=== PATIENT | male | born 1965 | race American Indian/Alaskan Native ===

== ENCOUNTER 2019-09-12 16:23 | Emergency (ER) | payer SELFPAY ==
--- NOTE | 2019-09-12 16:51 | Emergency Department Report ---
Blank Doc - Documentation Documentation: 53-year-old male that presents with right wrist drop with history of wrist drop. Stated symptoms started in the middle of the night after sleeping. Exam: no weakness to one sided. no facial drooping. no headache. normal gait. This initial assessment/diagnostic orders/clinical plan/treatment(s) is/are subject to change based on patient's health status, clinical progression and re- assessment by fellow clinical providers in the ED. Further treatment and workup at subsequent clinical providers discretion. Patient/guardians urged not to elope from the ED as their condition may be serious if not clinically assessed and managed. Initial orders include: 1- Patient sent to [facility] for further evaluation and treatment 2- labs
[2019-09-12 19:42] LABS: Basophils # (Auto) 0.2 K/mm3 (0.0-0.1); Basophils % (Auto) 1.9 % (0.0-1.8); Eosinophils # (Auto) 0.3 K/mm3 (0.0-0.4); Eosinophils % (Auto) 3.5 % (0.0-4.3); Hematocrit 51.3 % (35.5-45.6); Hemoglobin 16.9 gm/dl (11.8-15.2); Lymphocytes # (Auto) 1.3 K/mm3 (1.2-5.4); Lymphocytes % (Auto) 16.4 % (13.4-35.0); Mean Corpuscular HGB Conc 33 % (32-34); Mean Corpuscular Volume 95 fl (84-94); Monocytes % (Auto) 12.6 % (0.0-7.3); Platelet Count 204 K/mm3 (140-440); Red Blood Count 5.38 M/mm3 (3.65-5.03); Red Cell Distribution Width 15.6 % (13.2-15.2)
[2019-09-12 20:37] LABS: BUN/Creatinine Ratio 11; Blood Urea Nitrogen 11 mg/dL (9-20); Calcium 9.6 mg/dL (8.4-10.2); Hemolysis Index 17
--- NOTE | 2019-09-12 21:59 | Emergency Department Report ---
HPI - General Chief Complaint: Neuro Symptoms/Deficit Time Seen by Provider: 09/12/19 16:47 - HPI HPI: Room 1 The patient is a 53-year-old male presenting with a chief complaint of right wrist weakness. The patient states he awakened this morning at 04:00 and knows it difficult to control in his right hand. The patient states he had difficulty extending his right wrist and timing issues with his right hand prompted him to come to the hospital. 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 The patient states symptoms improved until this morning. Patient states it feels exact same way as it did 5 years ago patient denies paresthesias elsewhere. Patient denies dysarthria or dysphagia. Patient denies weakness \Location: [See above] Duration: [See above] Quality: [See above] Severity: [See above] Timing: [See above] Context: [See above] Modifying factors: [See above] Associated signs and symptoms: [see above] ED Past Medical Hx - Past Medical History Hx Hypertension: Yes Hx Diabetes: Yes - Surgical History Past Surgical History?: No - Family History Family history: no significant - Social History Smoking Status: Current Every Day Smoker (2/3 pack per day) Substance Use Type: Cocaine, Marijuana ED Review of Systems ROS: Stated complaint: RT ARM TINGLE/POSS STROKE Other details as noted in HPI Constitutional: no symptoms reported Eyes: denies: eye pain ENT: denies: throat pain Respiratory: no symptoms reported Cardiovascular: denies: chest pain Endocrine: no symptoms reported Gastrointestinal: denies: abdominal pain Genitourinary: denies: dysuria Musculoskeletal: denies: back pain Neurological: weakness, paresthesias Psychiatric: denies: depression Physical Exam - Physical Exam Vital Signs: Vital Signs 09/12/19 09/12/19 09/12/19 16:46 20:35 20:36 Temperature 98.0 F Pulse Rate 114 H 106 H Respiratory 16 28 H 20 Rate Blood Pressure 177/110 O2 Sat by Pulse 97 98 Oximetry 09/12/19 09/12/19 09/12/19 20:45 21:01 21:15 Temperature Pulse Rate 111 H 92 H 105 H Respiratory 22 18 22 Rate Blood Pressure 171/107 171/107 160/96 O2 Sat by Pulse 99 94 98 Oximetry 09/12/19 21:31 Temperature Pulse Rate 85 Respiratory 22 Rate Blood Pressure 160/96 O2 Sat by Pulse 97 Oximetry Physical Exam: GENERAL: The patient is well-developed well-nourished male sleeping on stretcher not appearing to be in acute distress. [] HEENT: Normocephalic. Atraumatic. Extraocular motions are intact. Patient has moist mucous membranes. NECK: Supple. Trachea midline CHEST/LUNGS: Clear to auscultation. There is no respiratory distress noted. HEART/CARDIOVASCULAR: Regular. There is no tachycardia. There is no gallop rub or murmur. 2+ right radial pulse ABDOMEN: Abdomen is soft, nontender. Patient has normal bowel sounds. There is no abdominal distention. SKIN: There is no rash. There is no edema. There is no diaphoresis. NEURO: The patient is awake, alert, and oriented. The patient is cooperative. Cranial nerves II through XII grossly intact, no drift. Moves all fingers well. 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 Patient has difficulty fully extending his right wrist. The patient has normal speech . NIHSS = 0 MUSCULOSKELETAL: There is no evidence of acute injury. ED Course Vital Signs 09/12/19 09/12/19 09/12/19 16:46 20:35 20:36 Temperature 98.0 F Pulse Rate 114 H 106 H Respiratory 16 28 H 20 Rate Blood Pressure 177/110 O2 Sat by Pulse 97 98 Oximetry 09/12/19 09/12/19 09/12/19 20:45 21:01 21:15 Temperature Pulse Rate 111 H 92 H 105 H Respiratory 22 18 22 Rate Blood Pressure 171/107 171/107 160/96 O2 Sat by Pulse 99 94 98 Oximetry 09/12/19 21:31 Temperature Pulse Rate 85 Respiratory 22 Rate Blood Pressure 160/96 O2 Sat by Pulse 97 Oximetry ED Medical Decision Making - Lab Data Result diagrams: 09/12/19 19:26 09/12/19 19:26 Laboratory Tests 09/12/19 09/12/19 19:26 19:26 WBC 8.1 RBC 5.38 H Hgb 16.9 H Hct 51.3 H MCV 95 H MCH 31 MCHC 33 RDW 15.6 H Plt Count 204 Lymph % (Auto) 16.4 [place] % (Auto) 12.6 H Eos % (Auto) 3.5 Baso % (Auto) 1.9 H Lymph # 1.3 [place] # 1.0 H Eos # 0.3 Baso # 0.2 H Seg Neutrophils % 65.6 Seg Neutrophils # 5.3 Sodium 142 Potassium 4.4 Chloride 100.8 Carbon Dioxide 26 Anion Gap 20 BUN 11 Creatinine 1.0 Estimated GFR > 60 BUN/Creatinine Ratio 11 Glucose 93 Calcium 9.6 - Differential Diagnosis wristdrop, carpal tunnel syndrome, neuropathy Critical care attestation.: If time is entered above; I have spent that time in minutes in the direct care of this critically ill patient, excluding procedure time. ED Disposition Clinical Impression: Right wrist drop Disposition: DC- TO HOME OR SELFCARE Is pt being admited?: No Does the pt Need Aspirin: No Condition: Stable Instructions: Radial Nerve Palsy (ED) Additional Instructions: Return to the emergency department should you develop worsening symptoms, inability to tolerate food or liquids, high fever or any other concerns Referrals: REKHA VALENCIA MD [Staff Physician] - 3-5 Days (Dr. Valencia is a neurologist. Please follow up with him for further evaluation) OCTAVIO TRUJILLO MD [Staff Physician] - 3-5 Days (Dr. Trujillo is an orthopedic surgeon. Please follow up with him for further evaluation) Time of Disposition: 22:02
[2019-09-12 22:05] VITALS: BP 146/90
== END 2019-09-12 22:27 | disposition home or self-care (01) ==
LOC: ED 16:23
DX: M21.331 Wrist drop, right wrist (principal); I10 Essential (primary) hypertension; E11.9 Type 2 diabetes mellitus without complications; F17.200 Nicotine dependence, unspecified, uncomplicated; F12.10 Cannabis abuse, uncomplicated; F14.10 Cocaine abuse, uncomplicated
CPT/HCPCS: 36415; 80048; 85025; 99283

== ENCOUNTER 2021-09-16 14:23 | Inpatient (IN) | payer SELFPAY ==
[2021-09-16] MEDS ORDERED: SODIUM CHLORIDE 0.9% 1000 ML 1,000 ML IV ONE (18:05)
--- NOTE | 2021-09-16 18:07 | Event Note ---
ED Screening Note ED Screening Note: pt presents for wanting detox States he uses alcohol and cocaine He states he drinks a 12 pack of beer and 2/5 of liquor a day He last drank 3 hours ago He states he has nausea, dry heaving, feeling shaky Past medical history of diabetes and hypertension has not been on any medication since February, he does not know what he supposed to be taking No allergies to medicines Heart rate 160 Patient will be evaluated by MD and placed on a nurse monitoring This initial assessment/diagnostic orders/clinical plan/treatment(s) is/are subject to change based on patients health status, clinical progression and re- assessment by fellow clinical providers in the ED. Further treatment and workup at subsequent clinical providers discretion. Patient/guardian urged not to elope from the ED as their condition may be serious if not clinically assessed and managed. Initial orders include: Labs, UDS, EKG
[2021-09-16] MEDS ORDERED: ONDANSETRON 4 MG/2 ML INJ IV ONE (18:11)
--- NOTE | 2021-09-16 18:14 | Emergency Department Report ---
ED Alcohol HPI - General Chief Complaint: Medical Clearance Stated Complaint: DETOX Time Seen by Provider: 09/16/21 18:10 Source: patient Mode of arrival: Ambulatory Limitations: No Limitations - History of Present Illness Initial Comments: 55-year male with a past medical history hypertension and diabetes noncompliant with medication since February 2021 presents to the hospital requesting detox from alcohol and cocaine. Patient last used cocaine and alcohol 3 hours prior to arrival. Presents with a heart rate in the 160s. He states he already feels tremulous with nausea and dry heaves. He has not been eating. Patient was sent by [facility] for medical clearance. Patient denies headache, chest pain, shortness breath, or abdominal pain. Patient typically drinks a 12 pack of beer and 2/5 of liquor a day. No history of alcohol withdrawal seizure - Related Data Allergies Allergy/AdvReac Type Severity Reaction Status Date / Time No Known Allergies Allergy Unverified 09/12/19 16:33 ED Review of Systems ROS: Stated complaint: DETOX Other details as noted in HPI Comment: All other systems reviewed and negative ED Past Medical Hx - Past Medical History Hx Hypertension: Yes Hx Diabetes: Yes - Surgical History Past Surgical History?: No - Social History Smoking Status: Current Every Day Smoker Substance Use Type: Alcohol, Cocaine ED Physical Exam - General Limitations: No Limitations - Other Other exam information: General: No acute distress Head: Atraumatic Eyes: normal appearance ENT: Moist mucous membranes Neck: Normal appearance, no midline tenderness Chest: Clear to auscultation bilaterally CV: Tachycardic regular rhythm Abdomen: Soft, normal bowel sounds, nontender, nondistended, no rebound or guarding Back: Normal inspection Extremity: Normal inspection, full range of motion Neuro: Alert O x 3, no facial asymmetry, speech clear, no gross motor sensory deficit, mildly tremulous Psych: Appropriate behavior Skin: No rash ED Course Vital Signs 09/16/21 09/16/21 09/16/21 18:05 18:32 18:45 Temperature 98.1 F Pulse Rate 159 H 153 H 152 H Respiratory 20 20 30 H Rate Blood Pressure 171/123 173/128 Blood Pressure [Left] O2 Sat by Pulse 98 98 97 Oximetry 09/16/21 09/16/21 09/16/21 19:01 19:15 19:31 Temperature 97.9 F Pulse Rate 149 H 150 H 150 H Respiratory 17 17 19 Rate Blood Pressure 163/119 155/103 153/112 Blood Pressure 155/103 [Left] O2 Sat by Pulse 96 98 95 Oximetry 09/16/21 09/16/21 09/16/21 19:42 19:45 20:01 Temperature Pulse Rate 149 H 150 H 77 Respiratory 20 17 Rate Blood Pressure 161/114 161/114 161/114 Blood Pressure [Left] O2 Sat by Pulse 97 98 Oximetry 09/16/21 09/16/21 09/16/21 20:15 20:31 20:45 Temperature Pulse Rate 92 H 95 H 93 H Respiratory 20 22 24 Rate Blood Pressure 137/89 134/88 147/84 Blood Pressure [Left] O2 Sat by Pulse 96 97 93 Oximetry 09/16/21 09/16/21 09/16/21 21:01 21:15 21:31 Temperature Pulse Rate 113 H 100 H 113 H Respiratory 20 24 14 Rate Blood Pressure 145/88 140/98 139/100 Blood Pressure [Left] O2 Sat by Pulse 96 96 Oximetry 09/16/21 09/16/21 09/16/21 21:45 22:01 22:15 Temperature Pulse Rate 90 123 H 116 H Respiratory 21 17 14 Rate Blood Pressure 141/99 151/100 151/100 Blood Pressure [Left] O2 Sat by Pulse 98 94 98 Oximetry 09/16/21 09/16/21 09/16/21 22:31 22:45 23:01 Temperature Pulse Rate 150 H 126 H 113 H Respiratory 26 H 17 31 H Rate Blood Pressure 143/77 151/110 151/110 Blood Pressure [Left] O2 Sat by Pulse 98 95 95 Oximetry 09/16/21 09/16/21 09/16/21 23:15 23:31 23:45 Temperature Pulse Rate 91 H 106 H 103 H Respiratory 31 H 14 25 H Rate Blood Pressure 126/100 136/109 141/105 Blood Pressure [Left] O2 Sat by Pulse 96 95 97 Oximetry 09/17/21 00:01 Temperature Pulse Rate 102 H Respiratory 27 H Rate Blood Pressure 142/91 Blood Pressure [Left] O2 Sat by Pulse 95 Oximetry - Reevaluation(s) Reevaluation #1: 09/16/21 21:03 Patient received diltiazem 20 mg bolus with reduction in heart rate and BP. At 8:35 PM BP 147/84. Heart rate 89. Flutter waves more apparent on repeat EKG - Consultations Consultation #1: 09/16/21 19: [address] Waldrop on-call roller printer. EKG reviewed. Agrees likely a flutter with 2-1 block and recommends Cardizem and heparin drip. Will consult during admission Consultation #2: 09/16/21 21: 34 Case discussed with on-call critical care attending Dr. Norman who will consult on patient during ICU admit ED Medical Decision Making - Lab Data Result diagrams: 09/16/21 18:11 09/16/21 18:11 Lab Results 09/16/21 09/16/21 09/16/21 Range/Units 18:11 18:11 18:11 WBC 6.5 (4.5-11.0) K/mm3 RBC 5.33 H (3.65-5.03) M/mm3 Hgb 16.6 H (11.8-15.2) gm/dl Hct 50.6 H (35.5-45.6) % MCV 95 H (84-94) fl MCH 31 (28-32) pg MCHC 33 (32-34) % RDW 15.1 (13.2-15.2) % Plt Count 215 (140-440) K/mm3 Lymph % (Auto) 31.1 (13.4-35.0) % [place] % (Auto) 12.5 H (0.0-7.3) % Eos % (Auto) 2.8 (0.0-4.3) % Baso % (Auto) 1.0 (0.0-1.8) % Lymph # (Auto) 2.0 (1.2-5.4) K/mm3 [place] # (Auto) 0.8 (0.0-0.8) K/mm3 Eos # (Auto) 0.2 (0.0-0.4) K/mm3 Baso # (Auto) 0.1 (0.0-0.1) K/mm3 Seg Neutrophils % 52.6 (40.0-70.0) % Seg Neutrophils # 3.4 (1.8-7.7) K/mm3 PT (12.2-14.9) Sec. INR (0.87-1.13) APTT (24.2-36.6) Sec. Sodium 138 (137-145) mmol/L Potassium 4.7 (3.6-5.0) mmol/L Chloride 100.6 (98-107) mmol/L Carbon Dioxide 23 (22-30) mmol/L Anion Gap 19 mmol/L BUN 9 (9-20) mg/dL Creatinine 1.0 (0.8-1.3) mg/dL Estimated GFR > 60 ml/min BUN/Creatinine Ratio 9 % Glucose 94 (75-100) mg/dL Calcium 9.1 (8.4-10.2) mg/dL Magnesium 1.80 (1.7-2.3) mg/dL Total Bilirubin 0.60 (0.1-1.2) mg/dL AST 23 (5-40) units/L ALT 11 (7-56) units/L Alkaline Phosphatase 90 (35-129) units/L Total Creatine Kinase 124 (55-170) units/L Troponin T (0.00-0.029) ng/mL Total Protein 8.1 (6.3-8.2) g/dL Albumin 3.9 (3.9-5) g/dL Albumin/Globulin Ratio 0.9 % Lipase (13-60) units/L TSH (0.270-4.200) mlU/mL Free T4 (0.76-1.46) ng/dL Salicylates < 0.3 L (2.8-20.0) mg/dL Acetaminophen (10.0-30.0) ug/mL Plasma/Serum Alcohol (0-0.07) % 09/16/21 09/16/21 09/16/21 Range/Units 18:11 18:11 18:11 WBC (4.5-11.0) K/mm3 RBC (3.65-5.03) M/mm3 Hgb (11.8-15.2) gm/dl Hct (35.5-45.6) % MCV (84-94) fl MCH (28-32) pg MCHC (32-34) % RDW (13.2-15.2) % Plt Count (140-440) K/mm3 Lymph % (Auto) (13.4-35.0) % [place] % (Auto) (0.0-7.3) % Eos % (Auto) (0.0-4.3) % Baso % (Auto) (0.0-1.8) % Lymph # (Auto) (1.2-5.4) K/mm3 [place] # (Auto) (0.0-0.8) K/mm3 Eos # (Auto) (0.0-0.4) K/mm3 Baso # (Auto) (0.0-0.1) K/mm3 Seg Neutrophils % (40.0-70.0) % Seg Neutrophils # (1.8-7.7) K/mm3 PT (12.2-14.9) Sec. INR (0.87-1.13) APTT (24.2-36.6) Sec. Sodium (137-145) mmol/L Potassium (3.6-5.0) mmol/L Chloride (98-107) mmol/L Carbon Dioxide (22-30) mmol/L Anion Gap mmol/L BUN (9-20) mg/dL Creatinine (0.8-1.3) mg/dL Estimated GFR ml/min BUN/Creatinine Ratio % Glucose (75-100) mg/dL Calcium (8.4-10.2) mg/dL Magnesium (1.7-2.3) mg/dL Total Bilirubin (0.1-1.2) mg/dL AST (5-40) units/L ALT (7-56) units/L Alkaline Phosphatase (35-129) units/L Total Creatine Kinase (55-170) units/L Troponin T < 0.010 (0.00-0.029) ng/mL Total Protein (6.3-8.2) g/dL Albumin (3.9-5) g/dL Albumin/Globulin Ratio % Lipase (13-60) units/L TSH (0.270-4.200) mlU/mL Free T4 (0.76-1.46) ng/dL Salicylates (2.8-20.0) mg/dL Acetaminophen 5.0 L (10.0-30.0) ug/mL Plasma/Serum Alcohol 0.02 (0-0.07) % 09/16/21 09/16/21 09/16/21 Range/Units 18:16 18:16 19:33 WBC (4.5-11.0) K/mm3 RBC (3.65-5.03) M/mm3 Hgb (11.8-15.2) gm/dl Hct (35.5-45.6) % MCV (84-94) fl MCH (28-32) pg MCHC (32-34) % RDW (13.2-15.2) % Plt Count (140-440) K/mm3 Lymph % (Auto) (13.4-35.0) % [place] % (Auto) (0.0-7.3) % Eos % (Auto) (0.0-4.3) % Baso % (Auto) (0.0-1.8) % Lymph # (Auto) (1.2-5.4) K/mm3 [place] # (Auto) (0.0-0.8) K/mm3 Eos # (Auto) (0.0-0.4) K/mm3 Baso # (Auto) (0.0-0.1) K/mm3 Seg Neutrophils % (40.0-70.0) % Seg Neutrophils # (1.8-7.7) K/mm3 PT 13.2 (12.2-14.9) Sec. INR 0.90 (0.87-1.13) APTT 34.5 (24.2-36.6) Sec. Sodium (137-145) mmol/L Potassium (3.6-5.0) mmol/L Chloride (98-107) mmol/L Carbon Dioxide (22-30) mmol/L Anion Gap mmol/L BUN (9-20) mg/dL Creatinine (0.8-1.3) mg/dL Estimated GFR ml/min BUN/Creatinine Ratio % Glucose (75-100) mg/dL Calcium (8.4-10.2) mg/dL Magnesium (1.7-2.3) mg/dL Total Bilirubin (0.1-1.2) mg/dL AST (5-40) units/L ALT (7-56) units/L Alkaline Phosphatase (35-129) units/L Total Creatine Kinase (55-170) units/L Troponin T (0.00-0.029) ng/mL Total Protein (6.3-8.2) g/dL Albumin (3.9-5) g/dL Albumin/Globulin Ratio % Lipase 20 (13-60) units/L TSH 0.623 (0.270-4.200) mlU/mL Free T4 1.16 (0.76-1.46) ng/dL Salicylates (2.8-20.0) mg/dL Acetaminophen (10.0-30.0) ug/mL Plasma/Serum Alcohol (0-0.07) % - EKG Data -: EKG Interpreted by Me Rate: tachycardia (aflutter ) - EKG Data 09/16/21 20: 35 Repeat EKG performed after Cardizem shows a flutter rate 89 with multiple PVCs. - Medical Decision Making 55-year-old male with a past medical history of alcohol abuse and cocaine abuse presents to the hospital for medical clearance. He also reports nausea and vomiting. Patient does have some mild symptoms of withdrawal i.e. tremors. Presented tachycardic with unclear etiology as differential included cocaine intoxication versus alcohol withdrawal. Patient's electrolytes, labs including thyroid testing and CBC are normal. Awaiting urine collection at disposition. Patient did not have a response in his heart rate to Ativan 1 mg. Case dis cussed with roller printer who agreed to underlying rhythm was atrial flutter. Patient received Cardizem bolus which improved heart rate and revealed more prominent flutter waves. Cardizem drip initiated. Anticoagulation initiated. Patient placed on CIWA protocol and will be admitted to the CCU for aflutter with RVR Critical Care Time: Yes Critical care time in (mins) excluding proc time.: 35 Critical care attestation.: If time is entered above; I have spent that time in minutes in the direct care of this critically ill patient, excluding procedure time. ED Disposition Clinical Impression: Atrial flutter with rapid ventricular response, Alcohol abuse, Alcohol withdrawal, Cocaine abuse Disposition: ADMITTED INPATIENT Is pt being admited?: Yes Condition: Stable Referrals: PRIMARY CARE, [Primary Care Provider] - 3-5 Days Time of Disposition: 21:33 (Dr garcia/hospitalist)
[2021-09-16] MEDS ORDERED: MAGNESIUM SULFATE 2 GM/50 ML BAG IV ONE (18:27)
[2021-09-16] MEDS ORDERED: LORazepam 2 MG/ML VIAL IV ONE (18:27)
[2021-09-16 18:32] LABS: Basophils # (Auto) 0.1 K/mm3 (0.0-0.1); Eosinophils # (Auto) 0.2 K/mm3 (0.0-0.4); Eosinophils % (Auto) 2.8 % (0.0-4.3); Hematocrit 50.6 % (35.5-45.6); Hemoglobin 16.6 gm/dl (11.8-15.2); Lymphocytes % (Auto) 31.1 % (13.4-35.0); Mean Corpuscular HGB Conc 33 % (32-34); Mean Corpuscular Volume 95 fl (84-94); Monocytes # (Auto) 0.8 K/mm3 (0.0-0.8); Monocytes % (Auto) 12.5 % (0.0-7.3); Platelet Count 215 K/mm3 (140-440); Red Blood Count 5.33 M/mm3 (3.65-5.03); Red Cell Distribution Width 15.1 % (13.2-15.2)
[2021-09-16 18:47] LABS: Alanine Aminotransferase 11 units/L (7-56); Albumin 3.9 g/dL (3.9-5); BUN/Creatinine Ratio 9; Blood Urea Nitrogen 9 mg/dL (9-20); Calcium 9.1 mg/dL (8.4-10.2); Hemolysis Index 147
[2021-09-16] MEDS ORDERED: THIAMINE 100 MG, FOLIC ACID 1 MG, MULTIPLE VITAMIN INJ, ADULT 10 ML in SODIUM CHLORIDE ... IV ONE (19:10)
[2021-09-16] MEDS ORDERED: dilTIAZem 25 MG/5 ML INJ IV ONE (19:23)
[2021-09-16 19:29] LABS: Free T4 (Free Thyroxine) 1.16 ng/dL (0.76-1.46)
[2021-09-16] MEDS: dilTIAZem/D5W 100 MG/100 ML BAG IV SCH (19:42)
[2021-09-16 20:04] LABS: INR 0.9 (0.87-1.13)
[2021-09-16 20:05] LABS: Partial Thromboplastin Time 34.5 Sec. (24.2-36.6)
[2021-09-16] MEDS ORDERED: HEPARIN 10,000 UNITS/10 ML VIAL IV ONE (21:00)
[2021-09-16] MEDS ORDERED: LORazepam 2 MG/ML VIAL IV PRN (21:01)
[2021-09-16] MEDS: HEPARIN/ 0.45% NACL DRIP 25,000 UNIT/500 ML BAG IV SCH (21:30)
[2021-09-16] MEDS ORDERED: MORPHINE 4 MG/1 ML INJ IV PRN (21:56)
[2021-09-16] MEDS ORDERED: ACETAMINOPHEN 325 MG TAB PO PRN (21:56)
[2021-09-16] MEDS ORDERED: traMADol 50 MG TAB PO PRN (21:56)
[2021-09-16] MEDS ORDERED: DEXTROSE 50% IN WATER (25GM) 50 ML SYRINGE IV PRN (21:56)
--- NOTE | 2021-09-16 22:07 | History and Physical Report ---
History of Present Illness Date of examination: 09/16/21 Date of admission: 09/16/21 Chief complaint: A flutter with RVR Alcohol detox History of present illness: 55-year male with history of alcohol abuse, hypertension, diabetes was brought to the emergency room because of a flutter with RVR and detox from alcohol and cocaine. Patient last used cocaine and alcohol 3 hours prior to arrival. Presents with a heart rate in the 160s. He states he already feels tremulous with nausea and dry heaves. He has not been eating. Patient was sent by [facility] for medical clearance. Patient denies headache, chest pain, shortness breath, or abdominal pain. Patient typically drinks a 12 pack of beer and 2/5 of liquor a day. No history of alcohol withdrawal seizure In the emergency room initial cardiac enzyme is negative but patient is found to have a flutter with RVR. 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 We also put the patient on CIWA protocol Med rec is not available Past History Past Medical History: hypertension, other (Alcohol abuse) Medications and Allergies Allergies Allergy/AdvReac Type Severity Reaction Status Date / Time No Known Allergies Allergy Unverified 09/12/19 16:33 Active Meds: Active Medications Acetaminophen (Acetaminophen 325 Mg Tab) 650 mg PO Q6H PRN PRN Reason: Pain, Mild (1-3) Aspirin (Aspirin 81 Mg Tab Chew) 81 mg PO QDAY CHARLENE Atorvastatin Calcium (Atorvastatin 40 Mg Tab) 40 mg PO QHS CHARLENE Dextrose (Dextrose 50% In Water (25gm) 50 Ml Syringe) 50 ml IV Q30MIN PRN; Protocol PRN Reason: Hypoglycemia Diltiazem HCl (Cardizem/D5w 100mg/100ml) 100 mg in 100 mls @ 5 mls/hr IV TITR CHARLENE; Protocol Last Titration: 09/16/21 21:03 Dose: 10 mg/hr, 10 mls/hr Documented by: Heparin Sodium/Sodium Chloride (Heparin/ 0.45% Nacl-25,000 Unit/500 Ml) 25,000 unit in 500 mls @ 26 mls/hr IV TITR CHARLENE; Protocol Last Admin: 09/16/21 21:30 Dose: 1,300 units/hr, 26 mls/hr Documented by: Sodium Chloride (Nacl 0.9% 1000 Ml) 1,000 mls @ 100 mls/hr IV DIRECT CHARLENE Insulin Human Lispro (Insulin Lispro 100 Unit/Ml) 0 unit SUB-Q ACHS CHARLENE; Protoc ol Lorazepam (Lorazepam 2 Mg/Ml Vial) 2 mg IV Q1HR PRN PRN Reason: CIWA-Ar 8-15 Lorazepam (Lorazepam 2 Mg/Ml Vial) 4 mg IV Q1HR PRN PRN Reason: CIWA-Ar 16-25 Morphine Sulfate (Morphine 4 Mg/1 Ml Inj) 2 mg IV Q5MIN PRN PRN Reason: Chest Pain unrelieved by NTG Sodium Chloride (Sodium Chloride 0.9% 10 Ml Flush Syringe) 10 ml IV PRN PRN PRN Reason: LINE FLUSH Tramadol HCl (Tramadol 50 Mg Tab) 50 mg PO Q6H PRN PRN Reason: Pain, Moderate (4-6) Review of Systems All systems: negative Constitutional: other (Dry heaves) Cardiovascular: palpitations Gastrointestinal: nausea Exam - Constitutional Vitals: Temp Pulse Resp BP Pulse Ox 97.9 F 100 H 24 140/98 96 09/16/21 19:15 09/16/21 21:15 09/16/21 21:15 09/16/21 21:15 09/16/21 21:01 General appearance: Present: mild distress, well-nourished - EENT Eyes: Present: PERRL ENT: hearing intact, clear oral mucosa - Neck Neck: Present: supple, normal ROM - Respiratory Respiratory effort: normal Respiratory: bilateral: diminished - Cardiovascular Rhythm: regularly irregular Heart Sounds: Present: S1 & S2. Absent: rub, click - Extremities Extremities: pulses symmetrical, No edema Peripheral Pulses: within normal limits - Abdominal General gastrointestinal: Present: soft, non-tender, non-distended, normal bowel sounds Male genitourinary: Present: normal - Integumentary Integumentary: Present: clear, warm, dry - Musculoskeletal Musculoskeletal: gait normal, strength equal bilaterally - Psychiatric Psychiatric: appropriate mood/affect, intact judgment & insight - Neurologic Neurologic: CNII-XII intact, moves all extremities HEART Score - HEART Score Troponin: Troponin T < 0.010 ng/mL (0.00-0.029) 09/16/21 18:11 Results - Labs CBC & Chem 7: 09/16/21 18:11 09/16/21 18:11 Labs: Laboratory Last Values WBC 6.5 K/mm3 (4.5-11.0) 09/16/21 18:11 RBC 5.33 M/mm3 (3.65-5.03) H 09/16/21 18:11 Hgb 16.6 gm/dl (11.8-15.2) H 09/16/21 18:11 Hct 50.6 % (35.5-45.6) H 09/16/21 18:11 MCV 95 fl (84-94) H 09/16/21 18:11 MCH 31 pg (28-32) 09/16/21 18:11 MCHC 33 % (32-34) 09/16/21 18:11 RDW 15.1 % (13.2-15.2) 09/16/21 18:11 Plt Count 215 K/mm3 (140-440) 09/16/21 18:11 Lymph % (Auto) 31.1 % (13.4-35.0) 09/16/21 18:11 [place] % (Auto) 12.5 % (0.0-7.3) H 09/16/21 18:11 Eos % (Auto) 2.8 % (0.0-4.3) 09/16/21 18:11 Baso % (Auto) 1.0 % (0.0-1.8) 09/16/21 18:11 Lymph # (Auto) 2.0 K/mm3 (1.2-5.4) 09/16/21 18:11 [place] # (Auto) 0.8 K/mm3 (0.0-0.8) 09/16/21 18:11 Eos # (Auto) 0.2 K/mm3 (0.0-0.4) 09/16/21 18:11 Baso # (Auto) 0.1 K/mm3 (0.0-0.1) 09/16/21 18:11 Seg Neutrophils % 52.6 % (40.0-70.0) 09/16/21 18:11 Seg Neutrophils # 3.4 K/mm3 (1.8-7.7) 09/16/21 18:11 PT 13.2 Sec. (12.2-14.9) 09/16/21 19:33 INR 0.90 (0.87-1.13) 09/16/21 19:33 APTT 34.5 Sec. (24.2-36.6) 09/16/21 19:33 Sodium 138 mmol/L (137-145) 09/16/21 18:11 Potassium 4.7 mmol/L (3.6-5.0) 09/16/21 18:11 Chloride 100.6 mmol/L (98-107) 09/16/21 18:11 Carbon Dioxide 23 mmol/L (22-30) 09/16/21 18:11 Anion Gap 19 mmol/L 09/16/21 18:11 BUN 9 mg/dL (9-20) 09/16/21 18:11 Creatinine 1.0 mg/dL (0.8-1.3) 09/16/21 18:11 Estimated GFR > 60 ml/min 09/16/21 18:11 BUN/Creatinine Ratio 9 % 09/16/21 18:11 Glucose 94 mg/dL (75-100) 09/16/21 18:11 Calcium 9.1 mg/dL (8.4-10.2) 09/16/21 18:11 Magnesium 1.80 mg/dL (1.7-2.3) 09/16/21 18:11 Total Bilirubin 0.60 mg/dL (0.1-1.2) 09/16/21 18:11 AST 23 units/L (5-40) 09/16/21 18:11 ALT 11 units/L (7-56) 09/16/21 18:11 Alkaline Phosphatase 90 units/L (35-129) 09/16/21 18:11 Total Creatine Kinase 124 units/L (55-170) 09/16/21 18:11 Troponin T < 0.010 ng/mL (0.00-0.029) 09/16/21 18:11 Total Protein 8.1 g/dL (6.3-8.2) 09/16/21 18:11 Albumin 3.9 g/dL (3.9-5) 09/16/21 18:11 Albumin/Globulin Ratio 0.9 % 09/16/21 18:11 Lipase 20 units/L (13-60) 09/16/21 18:16 TSH 0.623 mlU/mL (0.270-4.200) 09/16/21 18:16 Free T4 1.16 ng/dL (0.76-1.46) 09/16/21 18:16 Salicylates < 0.3 mg/dL (2.8-20.0) L 09/16/21 18:11 Acetaminophen 5.0 ug/mL (10.0-30.0) L 09/16/21 18:11 Plasma/Serum Alcohol 0.02 % (0-0.07) 09/16/21 18:11 - Imaging and Cardiology Chest x-ray: report reviewed Assessment and Plan VTE prophylaxis?: Chemical Plan of care discussed with patient/family: Yes - Patient Problems (1) Atrial flutter with rapid ventricular response Current Visit: Yes Status: Acute Plan to address problem: Admit the patient to the intensive care unit. Normal saline at the rate of 100 cc/h. Cardizem drip as per protocol. Due to the serial cardiac enzyme. Aspirin 81 mg p.o. daily. Lipitor 40 mg p.o. daily. Heparin drip as per protocol. Echocardiogram. Cardiology consult. Critical care consult (2) Alcohol withdrawal Current Visit: Yes Status: Acute Plan to address problem: We will put the patient on CIWA protocol. We also put the patient on banana bag, thiamine and folic acid. We counseled patient regarding quit drinking (3) Cocaine abuse Current Visit: Yes Status: Acute Plan to address problem: We counseled the patient regarding quit taking cocaine (4) Diabetes Current Visit: Yes Status: Acute Plan to address problem: 1800 kcal ADA diet. Humalog sliding scale Accu-Chek before meals and at bedtime with moderate dose sliding scale. Diabetic education. BMP in the morning (5) Hypertension Current Visit: Yes Status: Acute Plan to address problem: Hydralazine 10 mg IV every 6 hours as needed. We will continue the home medication. We will monitor the patient closely (6) DVT prophylaxis Current Visit: Yes Status: Acute Plan to address problem: Heparin drip as per DVT prophylaxis. Protonix 40 mg p.o. daily for GI prophylaxis. Patient is a full code.
--- NOTE | 2021-09-16 22:17 | XRay Report ---
CHEST 1 VIEW 09/16/2021 8:59 PM INDICATION / CLINICAL INFORMATION: Tachycardia. COMPARISON: None available. FINDINGS: SUPPORT DEVICES: None. HEART / MEDIASTINUM: Borderline cardiomegaly. LUNGS / PLEURA: Bilateral interstitial prominence. No focal lung consolidation. No pneumothorax. ADDITIONAL FINDINGS: No significant additional findings. IMPRESSION: 1. Borderline cardiomegaly with bilateral interstitial prominence suggestive of pulmonary edema. Signer Name: Trace Gregorio MD Signed: 09/16/2021 10:12 PM Workstation Name: [id number]
[2021-09-16] MEDS: INSULIN LISPRO 100 UNIT/ML SUB-Q SCH (22:41)
[2021-09-17 03:38] LABS: Amphetamine Screen,Urine PRESUMPTIVE NEGATIVE; Benzodiazepines Screen,Urine PRESUMPTIVE NEGATIVE; Cannabinoid Screen,Urine PRESUMPTIVE POSITIVE; Cocaine Screen,Urine PRESUMPTIVE POSITIVE; Methadone Screen,Urine PRESUMPTIVE NEGATIVE; Opiate Screen,Urine PRESUMPTIVE NEGATIVE
[2021-09-17 03:49] LABS: Bilirubin,Urine NEG (Negative); Blood,Urine NEG (Negative); Color,Urine Yellow (Yellow); Mucus,Urine FEW /HPF; Urobilinogen,Urine < 2.0 mg/dL (<2.0)
[2021-09-17 04:03] LABS: Basophils % (Auto) 0.5 % (0.0-1.8); Eosinophils # (Auto) 0.3 K/mm3 (0.0-0.4); Eosinophils % (Auto) 4.4 % (0.0-4.3); Hematocrit 47.9 % (35.5-45.6); Hemoglobin 15.6 gm/dl (11.8-15.2); Lymphocytes # (Auto) 2.1 K/mm3 (1.2-5.4); Lymphocytes % (Auto) 29.1 % (13.4-35.0); Mean Corpuscular HGB Conc 33 % (32-34); Mean Corpuscular Volume 96 fl (84-94); Monocytes # (Auto) 0.8 K/mm3 (0.0-0.8); Monocytes % (Auto) 11.4 % (0.0-7.3); Platelet Count 203 K/mm3 (140-440); Red Blood Count 5.01 M/mm3 (3.65-5.03)
[2021-09-17 04:24] LABS: BUN/Creatinine Ratio 9; Blood Urea Nitrogen 10 mg/dL (9-20); Calcium 8.7 mg/dL (8.4-10.2); Hemolysis Index 10
[2021-09-17] MEDS: dilTIAZem/D5W 100 MG/100 ML BAG IV SCH (04:49)
--- NOTE | 2021-09-17 08:43 | Progress Note ---
Assessment and Plan Assessment and plan: (1) Atrial flutter with rapid ventricular response Current Visit: Yes Status: Acute Plan to address problem: Admit the patient to the intensive care unit. Normal saline at the rate of 100 cc/h. Cardizem drip, wean per protocol. Started cardizem 30 mg po q6hr Due to the serial cardiac enzyme. Aspirin 81 mg p.o. daily. Lipitor 40 mg p.o. daily. Heparin drip as per protocol. Echocardiogram. Terrence on 09/18. Cardiology consult. Critical care consult (2) Alcohol withdrawal Current Visit: Yes Status: Acute Plan to address problem: We will put the patient on CIWA protocol. We also put the patient on banana bag, thiamine and folic acid. We counseled patient regarding quit drinking Psychiatry consulted, recommend inpatient psych hospitalization. Started on gabapentin 100 po daily, trazodone 50 po qhs. Recommend continuation of 1013. (3) Cocaine abuse Current Visit: Yes Status: Acute Plan to address problem: Hx of multisubstance abuse. We counseled the patient regarding quit taking cocaine (4) Diabetes Current Visit: Yes Status: Acute Plan to address problem: 1800 kcal ADA diet. Humalog sliding scale Accu-Chek before meals and at bedtime with moderate dose sliding scale. Diabetic education. BMP in the morning (5) Hypertension Current Visit: Yes Status: Acute Plan to address problem: Hydralazine 10 mg IV every 6 hours as needed. We will continue the home medication. We will monitor the patient closely (6) DVT prophylaxis Current Visit: Yes Status: Acute Plan to address problem: Heparin drip as per DVT prophylaxis. Protonix 40 mg p.o. daily for GI prophylaxis. Patient is a full code. The high probability of a clinically significant, sudden or life threatening deterioration of the [cardiac, endocrine, neuro] system(s) required my full and direct attention, intervention and personal management. The aggregate critical care time was [60] minutes. This time is in addition to time spent performing reported procedures but includes the following: [x] Data Review and interpretation [x] Patient assessment and monitoring of vital signs [x] Documentation [x] Medication orders and management History Interval history: No acute complaints on encounter. Denies hallucinations, chest pain, dizziness, n/v. Discussed care plan with patient. Hospitalist Physical - Physical exam Narrative exam: General appearance: Present: mild distress, well-nourished - EENT Eyes: Present: PERRL ENT: hearing intact, clear oral mucosa - Neck Neck: Present: supple, normal ROM - Respiratory Respiratory effort: normal Respiratory: bilateral: diminished - Cardiovascular Rhythm: regularly irregular Heart Sounds: Present: S1 & S2. Absent: rub, click - Extremities Extremities: pulses symmetrical, No edema Peripheral Pulses: within normal limits - Abdominal General gastrointestinal: Present: soft, non-tender, non-distended, normal bowel sounds Male genitourinary: Present: normal - Integumentary Integumentary: Present: clear, warm, dry - Musculoskeletal Musculoskeletal: gait normal, strength equal bilaterally - Psychiatric Psychiatric: appropriate mood/affect, intact judgment & insight - Neurologic Neurologic: CNII-XII intact, moves all extremities - Constitutional Vitals: Temp Pulse Resp BP Pulse Ox 97.9 F 76 17 105/76 92 09/16/21 19:15 09/17/21 07:01 09/17/21 07:01 09/17/21 07:01 09/17/21 07:01 General appearance: Present: mild distress, well-nourished HEART Score - HEART Score Troponin: Troponin T < 0.010 ng/mL (0.00-0.029) 09/17/21 03:35 Results - Labs CBC & Chem 7: 09/17/21 03:35 09/17/21 03:35 Labs: Laboratory Last Values WBC 7.1 K/mm3 (4.5-11.0) 09/17/21 03:35 RBC 5.01 M/mm3 (3.65-5.03) 09/17/21 03:35 Hgb 15.6 gm/dl (11.8-15.2) H 09/17/21 03:35 Hct 47.9 % (35.5-45.6) H 09/17/21 03:35 MCV 96 fl (84-94) H 09/17/21 03:35 MCH 31 pg (28-32) 09/17/21 03:35 MCHC 33 % (32-34) 09/17/21 03:35 RDW 15.0 % (13.2-15.2) 09/17/21 03:35 Plt Count 203 K/mm3 (140-440) 09/17/21 03:35 Lymph % (Auto) 29.1 % (13.4-35.0) 09/17/21 03:35 [place] % (Auto) 11.4 % (0.0-7.3) H 09/17/21 03:35 Eos % (Auto) 4.4 % (0.0-4.3) H 09/17/21 03:35 Baso % (Auto) 0.5 % (0.0-1.8) 09/17/21 03:35 Lymph # (Auto) 2.1 K/mm3 (1.2-5.4) 09/17/21 03:35 [place] # (Auto) 0.8 K/mm3 (0.0-0.8) 09/17/21 03:35 Eos # (Auto) 0.3 K/mm3 (0.0-0.4) 09/17/21 03:35 Baso # (Auto) 0.0 K/mm3 (0.0-0.1) 09/17/21 03:35 Seg Neutrophils % 54.6 % (40.0-70.0) 09/17/21 03:35 Seg Neutrophils # 3.9 K/mm3 (1.8-7.7) 09/17/21 03:35 PT 13.2 Sec. (12.2-14.9) 09/16/21 19:33 INR 0.90 (0.87-1.13) 09/16/21 19:33 APTT 34.5 Sec. (24.2-36.6) 09/16/21 19:33 Heparin Anti-Xa Level 0.35 U.I./ml (0.3-0.7) 09/17/21 03:35 Sodium 140 mmol/L (137-145) 09/17/21 03:35 Potassium 3.7 mmol/L (3.6-5.0) D 09/17/21 03:35 Chloride 101.9 mmol/L (98-107) 09/17/21 03:35 Carbon Dioxide 26 mmol/L (22-30) 09/17/21 03:35 Anion Gap 16 mmol/L 09/17/21 03:35 BUN 10 mg/dL (9-20) 09/17/21 03:35 Creatinine 1.1 mg/dL (0.8-1.3) 09/17/21 03:35 Estimated GFR > 60 ml/min 09/17/21 03:35 BUN/Creatinine Ratio 9 % 09/17/21 03:35 Glucose 108 mg/dL (75-100) H 09/17/21 03:35 POC Glucose 94 mg/dL (70-105) 09/16/21 22:20 Calcium 8.7 mg/dL (8.4-10.2) 09/17/21 03:35 Magnesium 1.80 mg/dL (1.7-2.3) 09/16/21 18:11 Total Bilirubin 0.60 mg/dL (0.1-1.2) 09/16/21 18:11 AST 23 units/L (5-40) 09/16/21 18:11 ALT 11 units/L (7-56) 09/16/21 18:11 Alkaline Phosphatase 90 units/L (35-129) 09/16/21 18:11 Total Creatine Kinase 124 units/L (55-170) 09/16/21 18:11 Troponin T < 0.010 ng/mL (0.00-0.029) 09/17/21 03:35 Total Protein 8.1 g/dL (6.3-8.2) 09/16/21 18:11 Albumin 3.9 g/dL (3.9-5) 09/16/21 18:11 Albumin/Globulin Ratio 0.9 % 09/16/21 18:11 Lipase 20 units/L (13-60) 09/16/21 18:16 TSH 0.623 mlU/mL (0.270-4.200) 09/16/21 18:16 Free T4 1.16 ng/dL (0.76-1.46) 09/16/21 18:16 Urine Color Yellow (Yellow) 09/17/21 03:10 Urine Turbidity Clear (Clear) 09/17/21 03:10 Urine pH 6.0 (5.0-7.0) 09/17/21 03:10 Ur Specific [place] 1.014 (1.003-1.030) 09/17/21 03:10 Urine Protein 100 mg/dl mg/dL (Negative) 09/17/21 03:10 Urine Glucose (UA) Neg mg/dL (Negative) 09/17/21 03:10 Urine Ketones Neg mg/dL (Negative) 09/17/21 03:10 Urine Blood Neg (Negative) 09/17/21 03:10 Urine Nitrite Neg (Negative) 09/17/21 03:10 Urine Bilirubin Neg (Negative) 09/17/21 03:10 Urine Urobilinogen < 2.0 mg/dL (<2.0) 09/17/21 03:10 Ur Leukocyte Esterase Neg (Negative) 09/17/21 03:10 Urine WBC (Auto) 1.0 /HPF (0.0-6.0) 09/17/21 03:10 Urine RBC (Auto) 3.0 /HPF (0.0-6.0) 09/17/21 03:10 Urine Mucus Few /HPF 09/17/21 03:10 Salicylates < 0.3 mg/dL (2.8-20.0) L 09/16/21 18:11 Urine Opiates Screen Presumptive negative 09/17/21 03:10 Urine Methadone Screen Presumptive negative 09/17/21 03:10 Acetaminophen 5.0 ug/mL (10.0-30.0) L 09/16/21 18:11 Ur Barbiturates Screen Presumptive negative 09/17/21 03:10 Ur Phencyclidine Scrn Presumptive negative 09/17/21 03:10 Ur Amphetamines Screen Presumptive negative 09/17/21 03:10 U Benzodiazepines Scrn Presumptive negative 09/17/21 03:10 Urine Cocaine Screen Presumptive positive 09/17/21 03:10 U Marijuana (THC) Screen Presumptive positive 09/17/21 03:10 Drugs of Abuse Note Disclamer 09/17/21 03:10 Plasma/Serum Alcohol 0.02 % (0-0.07) 09/16/21 18:11 Active Medications - Current Medications Current Medications: Generic Name Dose Route Start Last Admin Trade Name Freq PRN Reason Stop Dose Admin Acetaminophen 650 mg 09/16/21 21:56 Acetaminophen 325 Mg Tab PO Q6H PRN Pain, Mild (1-3) Aspirin 81 mg 09/17/21 10:00 Aspirin 81 Mg Tab Chew PO QDAY CHARLENE Atorvastatin Calcium 40 mg 09/16/21 22:00 09/16/21 22:41 Atorvastatin 40 Mg Tab PO 40 mg QHS CHARLENE Administration Dextrose 0 ml 09/16/21 21:56 Dextrose 50% In Water (25gm) 50 Ml Syringe IV Q30MIN PRN Hypoglycemia Protocol Diltiazem HCl 100 mg in 100 mls @ 5 mls/hr 09/16/21 20:00 09/17/21 04:49 Cardizem/D5w 100mg/100ml IV 15 mg/hr TITR CHARLENE 15 mls/hr Administration Protocol 5 MG/HR Heparin Sodium/Sodium Chloride 25,000 unit in 500 mls @ 26 mls/hr 09/16/21 22:00 09/16/21 21:30 Heparin/ 0.45% Nacl-25,000 Unit/500 Ml IV 1,300 units/hr TITR CHARLENE 26 mls/hr Administration Protocol 1,300 UNITS/HR Sodium Chloride 1,000 mls @ 100 mls/hr 09/16/21 22:00 Nacl 0.9% 1000 Ml IV DIRECT [facility] Insulin Human Lispro 0 unit 09/16/21 22:00 09/16/21 22:41 Insulin Lispro 100 Unit/Ml SUB-Q Not Given ACHS [facility] Protocol Lorazepam 2 mg 09/16/21 21:01 Lorazepam 2 Mg/Ml Vial IV Q1HR PRN CIWA-Ar 8-15 Lorazepam 4 mg 09/16/21 21:01 Lorazepam 2 Mg/Ml Vial IV Q1HR PRN CIWA-Ar 16-25 Morphine Sulfate 2 mg 09/16/21 21:56 Morphine 4 Mg/1 Ml Inj IV Q5MIN PRN Chest Pain unrelieved by NTG Sodium Chloride 10 ml 09/16/21 21:56 Sodium Chloride 0.9% 10 Ml Flush Syringe IV PRN PRN LINE FLUSH Tramadol HCl 50 mg 09/16/21 21:56 Tramadol 50 Mg Tab PO Q6H PRN Pain, Moderate (4-6)
--- NOTE | 2021-09-17 09:11 | Electrocardiograph Report ---
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
--- NOTE | 2021-09-17 09:12 | Electrocardiograph Report ---
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
[2021-09-17] MEDS: INSULIN LISPRO 100 UNIT/ML SUB-Q SCH ×4 (09:55→21:49)
--- NOTE | 2021-09-17 10:48 | Event Note ---
Date: 09/17/21 CAlled by ED doc last night about ETOH and Cocaine abuse and need for ICU secondary to Aflutter. Started on dilt drip. Cards has seen and placed on PO meds. Needs CIWA and lots of ativan therapy. Defer to cards in regards to rate control therapy but please avoid unopposed alpha blocking agents given his cocaine use. Once off drip (dilt) and CIWA score is less than 25 should be stable for floor.
[2021-09-17] MEDS: ASPIRIN 81 MG TAB CHEW PO SCH (11:44)
[2021-09-17] MEDS: dilTIAZem 30 MG TAB PO SCH ×2 (11:45→17:44)
--- NOTE | 2021-09-17 11:58 | Progress Note ---
Subjective - Reason for Consult Consult date: 09/17/21 Reason for consult: mental health evaluation - Chief Complaint Chief complaint: ED Note:55-year male with a past medical history hypertension and diabetes noncompliant with medication since February 2021 presents to the hospital requesting detox from alcohol and cocaine. Patient last used cocaine and alcohol 3 hours prior to arrival. Presents with a heart rate in the 160s. He states he already feels tremulous with nausea and dry heaves. He has not been eating. Patient was sent by [facility] for medical clearance. Patient denies headache, chest pain, shortness breath, or abdominal pain. Patient typically drinks a 12 pack of beer and 2/5 of liquor a day. No history of alcohol withdrawal seizure. Naeem Monsivais is a 56 year old male with no prior psychiatric history who presents to the ED for medical clearance. In my interview with the patient, he reports being depressed. The patient reports a daily use of a fifth of vodka, 2 grams of cocaine and unknown amount of marijuana; he reports he has being using for the past 40 years , states longest sobriety periods as 24 hours. He reports that he went to [facility] for detox. He report that " I have lost everything, I lost my job last Thursday, my girl friend, and my car, I feel like I don't have anything." The patient denies any current suicidal ideation and denies hallucinations. The patient presents with with moderate tremors, anxiety and has alcohol cravings. PAST PSYCHIATRIC HISTORY Diagnoses:Alcohol use disorder Suicide attempts or Self-harm behavior: None reported Prior psychiatric hospitalizations: Denies Substance Abuse history: Alcohol, Cocaine and marijuana Previous psychiatric medications tried: Denies Outpatient treatment: Denies PAST MEDICAL HISTORY: Family Psychiatric History: None reported or documented SOCIAL HISTORY Marital Status: Single Living Arrangements: lives with niece Employment Status: Unemployed Access to guns/weapons: None reported Education: 12th grade History of Abuse: None reported Legal History: unknown REVIEW OF SYSTEMS Constitutional: Negative for weight loss ENT: Negative for stridor Respiratory: Negative for cough or hemoptysis All other systems reviewed and are negative MENTAL STATUS EXAMINATION General Appearance and Behavior: Age appropriate, good hygiene, wearing appropriate clothes, good eye contact, cooperative with questioning Cooperation: Participating/engaged Psychomotor Behavior: abnormal Mood:"depressed" Affect and affective range: congruent with mood Thought Process:goal directed Thought Content: Not suicidal Speech: Normal volume, Regular rate and rhythm. Intellectual Functioning: Average Suicidal Ideation: Denies Homicidal Ideation: Denies Hallucinations: Denies Delusions: None elicited Impulse Control: Limited Insight and Judgment: limited insight and poor judgment Memory: Normal Attention: Normal Orientation: Alert, oriented. Assessment and Plan (1) Major depressive disorder (2) Alcohol use disorder Current Visit: No Status: Acute RECOMMENDATIONS Continue CIWA protocol Continue 1013 Start Gabapentin 100mg po daily Start Trazodone 50mg po QHS Risks, benefits and alternatives of medications discussed with the patient, questions answered and consent obtained from patient. PSYCHOTHERAPY: Supportive psychotherapy provided MEDICAL: Per primary team DELIRIUM PRECAUTIONS: Please re-orient patient frequently, keep lights on during the day, and minimize benzodiazepines and opiates as these medications could w orsen patient's confusion. CHARGE PREPARATION TECHNICIAN: non indicated DISPOSITION: Recommend acute inpatient psychiatric hospitalization at this time. Case discussed with Dr. Vilchis. FOLLOW-UP: Will follow. Thank you for the consult. Please contact with any questions and/or concerns. Mental Status Exam - Vital signs Last Vital Signs Temp 97.9 F 09/16/21 19:15 Pulse 75 09/17/21 11:05 Resp 31 H 09/17/21 11:05 BP 116/78 09/17/21 11:05 Pulse Ox 90 09/17/21 11:05
--- NOTE | 2021-09-17 13:50 | Consultation ---
History of Present Illness Consult date: 09/17/21 Requesting physician: ALMA DELIA LORENZO Consult reason: other (aflutter w/ RVR) History of present illness: Patient is a 55-year-old male with a past medical history of alcohol abuse hypertension diabetes who presented to the ED last night due to being found in a flutter with RVR. Patient was sent by [facility] for medical clearance for detox from alcohol and cocaine use. Patient reports that he has not taking any of his blood pressure medication since February and that he is not sure what medications he is supposed to be on. Per documentation patient last known use of alcohol and cocaine was 3 hours before arrival at the ED. In the ED patient was started on Cardizem drip. At time of interview patient denies any cardiac symptoms including headache, chest pain, shortness of breath, or abdominal pain. He reports he did not know he ever he had a high heart rate. Patient is previously unknown to our practice. Cardiology was consulted for A. fib with RVR. Past History Past Medical History: hypertension, other (Alcohol abuse) Past Surgical History: No surgical history Social history: alcohol abuse, other (cocain use) Family history: no significant family history Medications and Allergies Allergies Allergy/AdvReac Type Severity Reaction Status Date / Time No Known Allergies Allergy Unverified 09/12/19 16:33 Active Meds: Active Medications Acetaminophen (Acetaminophen 325 Mg Tab) 650 mg PO Q6H PRN PRN Reason: Pain, Mild (1-3) Aspirin (Aspirin 81 Mg Tab Chew) 81 mg PO QDAY [facility] Last Admin: 09/17/21 11:44 Dose: 81 mg Documented by: Atorvastatin Calcium (Atorvastatin 40 Mg Tab) 40 mg PO QHS [facility] Last Admin: 09/16/21 22:41 Dose: 40 mg Documented by: Dextrose (Dextrose 50% In Water (25gm) 50 Ml Syringe) 0 ml IV Q30MIN PRN; Protocol PRN Reason: Hypoglycemia Diltiazem HCl (Diltiazem 30 Mg Tab) 30 mg PO Q6HR [facility] Last Admin: 09/17/21 11:45 Dose: 30 mg Documented by: Gabapentin (Gabapentin 100 Mg Cap) 100 mg PO DAILY [facility] Diltiazem HCl (Cardizem/D5w 100mg/100ml) 100 mg in 100 mls @ 5 mls/hr IV TITR [facility]; Protocol Last Titration: 09/17/21 12:10 Dose: 5 mg/hr, 5 mls/hr Documented by: Heparin Sodium/Sodium Chloride (Heparin/ 0.45% Nacl-25,000 Unit/500 Ml) 25,000 unit in 500 mls @ 26 mls/hr IV TITR CHARLENE; Protocol Last Admin: 09/16/21 21:30 Dose: 1,300 units/hr, 26 mls/hr Documented by: Sodium Chloride (Nacl 0.9% 1000 Ml) 1,000 mls @ 100 mls/hr IV DIRECT CHARLENE Insulin Human Lispro (Insulin Lispro 100 Unit/Ml) 0 unit SUB-Q ACHS CHARLENE; Pr otocol Last Admin: 09/17/21 11:45 Dose: Not Given Documented by: Lorazepam (Lorazepam 2 Mg/Ml Vial) 2 mg IV Q1HR PRN PRN Reason: CIWA-Ar 8-15 Lorazepam (Lorazepam 2 Mg/Ml Vial) 4 mg IV Q1HR PRN PRN Reason: CIWA-Ar 16-25 Morphine Sulfate (Morphine 4 Mg/1 Ml Inj) 2 mg IV Q5MIN PRN PRN Reason: Chest Pain unrelieved by NTG Sodium Chloride (Sodium Chloride 0.9% 10 Ml Flush Syringe) 10 ml IV PRN PRN PRN Reason: LINE FLUSH Tramadol HCl (Tramadol 50 Mg Tab) 50 mg PO Q6H PRN PRN Reason: Pain, Moderate (4-6) Trazodone HCl (Trazodone 50 Mg Tab) 50 mg PO QHS CHARLENE Review of Systems Constitutional: no weight loss, no weight gain Ears, nose, mouth and throat: no nasal congestion, no nasal discharge, no sinus pressure Cardiovascular: no chest pain, no orthopnea, no palpitations, no syncope, no lightheadedness, no shortness of breath Respiratory: no cough, no cough with sputum, no excessive sputum Gastrointestinal: nausea, no abdominal pain, no vomiting Musculoskeletal: no neck stiffness, no neck pain, no shooting arm pain Integumentary: no rash, no pruritis, no redness Neurological: no tingling, no seizures, no syncope Psychiatric: no anxiety, no memory loss Endocrine: no cold intolerance, no heat intolerance Hematologic/Lymphatic: no easy bruising, no easy bleeding Physical Examination Vital Signs Temp Pulse Resp BP Pulse Ox 98.1 F 159 H 20 171/123 98 11/01/21 18:05 09/16/21 18:05 09/16/21 18:05 09/16/21 18:05 09/16/21 18:05 General appearance: no acute distress HEENT: Positive: PERRL Neck: Positive: trachea midline Cardiac: Positive: Irregularly Regular Lungs: Positive: clear to auscultation, Normal Breath Sounds Neuro: Positive: Grossly Intact Abdomen: Positive: Soft, Active Bowel Sounds Skin: Negative: Rash, Suspicious Lesions, Ulceration Extremities: Present: upper extr. pulses, lower extr. pulses Results 09/17/21 03:35 09/17/21 03:35 Cardiac Enzymes 09/16/21 Range/Units 18:11 AST 23 (5-40) units/L Coagulation 09/16/21 Range/Units 19:33 PT 13.2 (12.2-14.9) Sec. INR 0.90 (0.87-1.13) APTT 34.5 (24.2-36.6) Sec. CBC 09/16/21 09/17/21 Range/Units 18:11 03:35 WBC 6.5 7.1 (4.5-11.0) K/mm3 RBC 5.33 H 5.01 (3.65-5.03) M/mm3 Hgb 16.6 H 15.6 H (11.8-15.2) gm/dl Hct 50.6 H 47.9 H (35.5-45.6) % Plt Count 215 203 (140-440) K/mm3 Lymph # (Auto) 2.0 2.1 (1.2-5.4) K/mm3 [place] # (Auto) 0.8 0.8 (0.0-0.8) K/mm3 Eos # (Auto) 0.2 0.3 (0.0-0.4) K/mm3 Baso # (Auto) 0.1 0.0 (0.0-0.1) K/mm3 Comprehensive Metabolic Panel 09/16/21 09/17/21 Range/Units 18:11 03:35 Sodium 138 140 (137-145) mmol/L Potassium 4.7 3.7 D (3.6-5.0) mmol/L Chloride 100.6 101.9 (98-107) mmol/L Carbon Dioxide 23 26 (22-30) mmol/L BUN 9 10 (9-20) mg/dL Creatinine 1.0 1.1 (0.8-1.3) mg/dL Glucose 94 108 H (75-100) mg/dL Calcium 9.1 8.7 (8.4-10.2) mg/dL AST 23 (5-40) units/L ALT 11 (7-56) units/L Alkaline Phosphatase 90 (35-129) units/L Total Protein 8.1 (6.3-8.2) g/dL Albumin 3.9 (3.9-5) g/dL - Imaging and Cardiology Echo: pending EKG interpretations - Telemetry EKG Rhythm: Atrial Flutter - EKG Supraventricular dysrhythmia: atrial flutter Assessment and Plan Plan: Initial EKG shows a flutter with RVR rate 153, ST depression probably rate related, prolonged QT interval. Troponins negative x2 Repeat EKG shows a flutter/fib rate 89 with no acute ischemic changes. Patient chest pain-free Echo pending Initiate Cardizem 30 mg p.o. every 6 hours. Wean Cardizem drip as tolerated. No BBs due to cocaine use Patient anticoagulated on heparin drip Plan for Lexiscan MPI stress test in the a.m. if patient is weaned off Cardizem drip. N.p.o. after midnight Patient seen in conjunction with Dr. Cota who agrees with this plan of care. We will continue to follow - Patient Problems (1) Alcohol abuse Current Visit: Yes Status: Acute (2) Alcohol withdrawal Current Visit: Yes Status: Acute (3) Atrial flutter with rapid ventricular response Current Visit: Yes Status: Acute (4) Cocaine abuse Current Visit: Yes Status: Acute (5) Diabetes Current Visit: Yes Status: Acute (6) Hypertension Current Visit: Yes Status: Acute
[2021-09-17] MEDS: GABAPENTIN 100 MG CAP PO SCH (14:57)
[2021-09-17] MEDS: SODIUM CHLORIDE 0.9% 1000 ML 1,000 ML IV SCH (17:46)
[2021-09-17] MEDS: LORazepam 2 MG/ML VIAL IV PRN ×2 (18:33→21:28)
[2021-09-17] MEDS: traZODone 50 MG TAB PO SCH (21:29)
[2021-09-18] MEDS: dilTIAZem 30 MG TAB PO SCH ×4 (00:40→18:16)
[2021-09-18] MEDS: LORazepam 2 MG/ML VIAL IV PRN (00:41)
[2021-09-18 04:07] LABS: Hematocrit 47.6 % (35.5-45.6)
[2021-09-18] MEDS: SODIUM CHLORIDE 0.9% 1000 ML 1,000 ML IV SCH (05:02)
[2021-09-18] MEDS: HEPARIN/ 0.45% NACL DRIP 25,000 UNIT/500 ML BAG IV SCH (05:07)
[2021-09-18] MEDS ORDERED: HEPARIN 10,000 UNITS/10 ML VIAL IV ONE (05:30)
[2021-09-18] MEDS ORDERED: REGADENOSON 0.4 MG/5 ML INJ IV ONE ×2 (06:40→08:48)
--- NOTE | 2021-09-18 08:26 | Progress Note ---
Assessment and Plan Assessment and plan: hospital course: 09/18: Aflutter in 100-120's. Now downgraded to tele floor bed. Lexiscan is negative, ECHO shows EF 40%. Plan for ANGELINA cardioversion tomorrow AM. remains a 1013, consulted CM for inpatient psych placement. Assessment and Plan (1) Atrial flutter with rapid ventricular response Current Visit: Yes Status: Acute Plan to address problem: Admit the patient to the intensive care unit. Normal saline at the rate of 100 cc/h. Due to the serial cardiac enzyme. Aspirin 81 mg p.o. daily. Lipitor 40 mg p.o. daily. Heparin drip as per protocol. Amiodorone 400 mg po bid, cardizem 60 mg po q6hr Echocardiogram: EF 40%, RV mild to moderate dilated, rv mild hypokinesis. LA mild dilation, Mild TR. (please refer to official echo report) Lexiscan on 09/18: negative for ischemia Cardiology consult - plan for angelina cardioversion tomorrow AM. (2) Alcohol withdrawal Current Visit: Yes Status: Acute Plan to address problem: We will put the patient on CIWA protocol. We also put the patient on banana bag, thiamine and folic acid. We counseled patient regarding quit drinking Psychiatry consulted, recommend inpatient psych hospitalization. Started on gabapentin 100 po daily, trazodone 50 po qhs. Recommend continuation of 1013. CM consulted to inpatient psych placement. (3) Cocaine abuse Current Visit: Yes Status: Acute Plan to address problem: Hx of multisubstance abuse. We counseled the patient regarding quit taking cocaine (4) Diabetes Current Visit: Yes Status: Acute Plan to address problem: 1800 kcal ADA diet. Humalog sliding scale Accu-Chek before meals and at bedtime with moderate dose sliding scale. Diabetic education. BMP in the morning (5) Hypertension Current Visit: Yes Status: Acute Plan to address problem: Hydralazine 10 mg IV every 6 hours as needed. We will continue the home medication. We will monitor the patient closely (6) DVT prophylaxis Current Visit: Yes Status: Acute Plan to address problem: Heparin drip as per DVT prophylaxis. Protonix 40 mg p.o. daily for GI pr ophylaxis. Patient is a full code. History Interval history: NO acute complaints. Off for stress this AM. Hospitalist Physical - Physical exam Narrative exam: General appearance: Present: mild distress, well-nourished - EENT Eyes: Present: PERRL ENT: hearing intact, clear oral mucosa - Neck Neck: Present: supple, normal ROM - Respiratory Respiratory effort: normal Respiratory: bilateral: diminished - Cardiovascular Rhythm: regularly irregular Heart Sounds: Present: S1 & S2. Absent: rub, click - Extremities Extremities: pulses symmetrical, No edema Peripheral Pulses: within normal limits - Abdominal General gastrointestinal: Present: soft, non-tender, non-distended, normal bowel sounds Male genitourinary: Present: normal - Integumentary Integumentary: Present: clear, warm, dry - Musculoskeletal Musculoskeletal: gait normal, strength equal bilaterally - Psychiatric Psychiatric: appropriate mood/affect, intact judgment & insight - Neurologic Neurologic: CNII-XII intact, moves all extremities - Constitutional Vitals: Temp Pulse Resp BP Pulse Ox 97.5 F L 79 20 140/98 92 09/18/21 07:53 09/18/21 07:53 09/18/21 07:53 09/18/21 07:53 09/18/21 07:53 General appearance: Present: mild distress, well-nourished HEART Score - HEART Score Troponin: Troponin T < 0.010 ng/mL (0.00-0.029) 09/17/21 03:35 Results - Labs CBC & Chem 7: 09/18/21 03:36 09/17/21 03:35 Labs: Laboratory Last Values WBC 7.1 K/mm3 (4.5-11.0) 09/17/21 03:35 RBC 5.01 M/mm3 (3.65-5.03) 09/17/21 03:35 Hgb 16.0 gm/dl (11.8-15.2) H 09/18/21 03:36 Hct 47.6 % (35.5-45.6) H 09/18/21 03:36 MCV 96 fl (84-94) H 09/17/21 03:35 MCH 31 pg (28-32) 09/17/21 03:35 MCHC 33 % (32-34) 09/17/21 03:35 RDW 15.0 % (13.2-15.2) 09/17/21 03:35 Plt Count 183 K/mm3 (140-440) 09/18/21 03:36 Lymph % (Auto) 29.1 % (13.4-35.0) 09/17/21 03:35 [place] % (Auto) 11.4 % (0.0-7.3) H 09/17/21 03:35 Eos % (Auto) 4.4 % (0.0-4.3) H 09/17/21 03:35 Baso % (Auto) 0.5 % (0.0-1.8) 09/17/21 03:35 Lymph # (Auto) 2.1 K/mm3 (1.2-5.4) 09/17/21 03:35 [place] # (Auto) 0.8 K/mm3 (0.0-0.8) 09/17/21 03:35 Eos # (Auto) 0.3 K/mm3 (0.0-0.4) 09/17/21 03:35 Baso # (Auto) 0.0 K/mm3 (0.0-0.1) 09/17/21 03:35 Seg Neutrophils % 54.6 % (40.0-70.0) 09/17/21 03:35 Seg Neutrophils # 3.9 K/mm3 (1.8-7.7) 09/17/21 03:35 PT 13.2 Sec. (12.2-14.9) 09/16/21 19:33 INR 0.90 (0.87-1.13) 09/16/21 19:33 APTT 34.5 Sec. (24.2-36.6) 09/16/21 19:33 Heparin Anti-Xa Level < 0.10 U.I./ml (0.3-0.7) L 09/18/21 03:36 Sodium 140 mmol/L (137-145) 09/17/21 03:35 Potassium 3.7 mmol/L (3.6-5.0) D 09/17/21 03:35 Chloride 101.9 mmol/L (98-107) 09/17/21 03:35 Carbon Dioxide 26 mmol/L (22-30) 09/17/21 03:35 Anion Gap 16 mmol/L 09/17/21 03:35 BUN 10 mg/dL (9-20) 09/17/21 03:35 Creatinine 1.1 mg/dL (0.8-1.3) 09/17/21 03:35 Estimated GFR > 60 ml/min 09/17/21 03:35 BUN/Creatinine Ratio 9 % 09/17/21 03:35 Glucose 108 mg/dL (75-100) H 09/17/21 03:35 POC Glucose 134 mg/dL (70-105) H 09/18/21 07:54 Calcium 8.7 mg/dL (8.4-10.2) 09/17/21 03:35 Magnesium 1.80 mg/dL (1.7-2.3) 09/16/21 18:11 Total Bilirubin 0.60 mg/dL (0.1-1.2) 09/16/21 18:11 AST 23 units/L (5-40) 09/16/21 18:11 ALT 11 units/L (7-56) 09/16/21 18:11 Alkaline Phosphatase 90 units/L (35-129) 09/16/21 18:11 Total Creatine Kinase 124 units/L (55-170) 09/16/21 18:11 Troponin T < 0.010 ng/mL (0.00-0.029) 09/17/21 03:35 Total Protein 8.1 g/dL (6.3-8.2) 09/16/21 18:11 Albumin 3.9 g/dL (3.9-5) 09/16/21 18:11 Albumin/Globulin Ratio 0.9 % 09/16/21 18:11 Lipase 20 units/L (13-60) 09/16/21 18:16 TSH 0.623 mlU/mL (0.270-4.200) 09/16/21 18:16 Free T4 1.16 ng/dL (0.76-1.46) 09/16/21 18:16 Urine Color Yellow (Yellow) 09/17/21 03:10 Urine Turbidity Clear (Clear) 09/17/21 03:10 Urine pH 6.0 (5.0-7.0) 09/17/21 03:10 Ur Specific [place] 1.014 (1.003-1.030) 09/17/21 03:10 Urine Protein 100 mg/dl mg/dL (Negative) 09/17/21 03:10 Urine Glucose (UA) Neg mg/dL (Negative) 09/17/21 03:10 Urine Ketones Neg mg/dL (Negative) 09/17/21 03:10 Urine Blood Neg (Negative) 09/17/21 03:10 Urine Nitrite Neg (Negative) 09/17/21 03:10 Urine Bilirubin Neg (Negative) 09/17/21 03:10 Urine Urobilinogen < 2.0 mg/dL (<2.0) 09/17/21 03:10 Ur Leukocyte Esterase Neg (Negative) 09/17/21 03:10 Urine WBC (Auto) 1.0 /HPF (0.0-6.0) 09/17/21 03:10 Urine RBC (Auto) 3.0 /HPF (0.0-6.0) 09/17/21 03:10 Urine Mucus Few /HPF 09/17/21 03:10 Salicylates < 0.3 mg/dL (2.8-20.0) L 09/16/21 18:11 Urine Opiates Screen Presumptive negative 09/17/21 03:10 Urine Methadone Screen Presumptive negative 09/17/21 03:10 Acetaminophen 5.0 ug/mL (10.0-30.0) L 09/16/21 18:11 Ur Barbiturates Screen Presumptive negative 09/17/21 03:10 Ur Phencyclidine Scrn Presumptive negative 09/17/21 03:10 Ur Amphetamines Screen Presumptive negative 09/17/21 03:10 U Benzodiazepines Scrn Presumptive negative 09/17/21 03:10 Urine Cocaine Screen Presumptive positive 09/17/21 03:10 U Marijuana (THC) Screen Presumptive positive 09/17/21 03:10 Drugs of Abuse Note Disclamer 09/17/21 03:10 Plasma/Serum Alcohol 0.02 % (0-0.07) 09/16/21 18:11 Brown/IV: Voiding Method Urinal Active Medications - Current Medications Current Medications: Generic Name Dose Route Start Last Admin Trade Name Freq PRN Reason Stop Dose Admin Acetaminophen 650 mg 09/16/21 21:56 Acetaminophen 325 Mg Tab PO Q6H PRN Pain, Mild (1-3) Aspirin 81 mg 09/17/21 10:00 09/17/21 11:44 Aspirin 81 Mg Tab Chew PO 81 mg QDAY CHARLENE Administration Atorvastatin Calcium 40 mg 09/16/21 22:00 09/17/21 21:29 Atorvastatin 40 Mg Tab PO 40 mg QHS CHARLENE Administration Dextrose 0 ml 09/16/21 21:56 Dextrose 50% In Water (25gm) 50 Ml Syringe IV Q30MIN PRN Hypoglycemia Protocol Diltiazem HCl 30 mg 09/17/21 12:00 09/18/21 05:02 Diltiazem 30 Mg Tab PO 30 mg Q6HR CHARLENE Administration Gabapentin 100 mg 09/17/21 13:00 09/17/21 14:57 Gabapentin 100 Mg Cap PO 100 mg DAILY CHARLENE Administration Heparin Sodium/Sodium Chloride 25,000 unit in 500 mls @ 26 mls/hr 09/16/21 22:00 09/18/21 05:07 Heparin/ 0.45% Nacl-25,000 Unit/500 Ml IV 1,550 units/hr TITR CHARLENE 31 mls/hr Administration Protocol 1,300 UNITS/HR Sodium Chloride 1,000 mls @ 100 mls/hr 09/16/21 22:00 09/18/21 05:02 Nacl 0.9% 1000 Ml IV 100 mls/hr DIRECT CHARLENE Administration Insulin Human Lispro 0 unit 09/16/21 22:00 09/17/21 21:49 Insulin Lispro 100 Unit/Ml SUB-Q Not Given ACHS CHARLENE Protocol Lorazepam 2 mg 09/16/21 21:01 09/18/21 00:41 Lorazepam 2 Mg/Ml Vial IV 2 mg Q1HR PRN Administration CIWA-Ar 8-15 Lorazepam 4 mg 09/16/21 21:01 Lorazepam 2 Mg/Ml Vial IV Q1HR PRN CIWA-Ar 16-25 Morphine Sulfate 2 mg 09/16/21 21:56 Morphine 4 Mg/1 Ml Inj IV Q5MIN PRN Chest Pain unrelieved by NTG Sodium Chloride 10 ml 09/16/21 21:56 09/17/21 21:29 Sodium Chloride 0.9% 10 Ml Flush Syringe IV 10 ml PRN PRN Administration LINE FLUSH Tramadol HCl 50 mg 09/16/21 21:56 Tramadol 50 Mg Tab PO Q6H PRN Pain, Moderate (4-6) Trazodone HCl 50 mg 09/17/21 22:00 09/17/21 21:29 Trazodone 50 Mg Tab PO 50 mg QHS CHARLENE Administration Nutrition/Malnutrition Assess - Dietary Evaluation Nutrition/Malnutrition Findings: Nutrition Notes Start: 09/17/21 10:53 Freq: Status: Active Protocol: Document 09/17/21 10:53 GB (Rec: 09/17/21 11:25 GB [id number]) Nutrition Notes Need for Assessment generated from: MD Order,Education Initial or Follow up Assessment Current Diagnosis Diabetes,Hypertension Other Pertinent Diagnosis ETOH/cocaine - detox Current Diet NPO Labs/Tests 09/17: mostly unremarkable, glucose 108 Pertinent Medications D5(PRN), Cardizem/D5 15ml/hr ( 61 kcal), heparin Na / NaCl Also receiving Banana bag with thiamine, folic acid per MD note Height 5 ft 8 in Weight 88.451 kg Adah Body Weight (kg) 70.00 BMI 29.6 Intake Prior to Admission Poor Weight change and time frame admit no weight changes reported upon admission Weight Status Appropriate Subjective/Other Information MD consult for nutrition education - To be provided when pt admitted to floor and/ or post planned medical procedures H/P: has not been eating. Having N/dry heaves. Usually drinks 12pack beer + 2-5 liqour/day Bowel sounds normal Per RN note: pt provided with food and juice on 09/16 2300hr Percent of energy/protein needs met: 0% - NPO at midnight Burn Absent Trauma Absent GI Symptoms Nausea Food Allergy No Skin Integrity/Comment no complications reported Current % PO Other Minimum of two criteria No #1 Nutrition Diagnosis Food and nutrition-related knowledge deficit Etiology ETOH/Cocaine abuse / detox As Evidenced by Signs and Symptoms MD consult for nutrition education Is patient on ventilator? No Is Patient Ambulatory and/or Out of Bed Yes REE-([facility]-ambulatory/OOB) [ 2182.713 [id number]] Kcal/Kg value to use for calculation 20 Approximate Energy Requirements Using 1769 kcal/Kg Calculation Used for Recommendations Kcal/kg Additional Notes Protein 1-1.2 g/kg @ 88k- 106g Fluids: 1 ml/kcal or per MD Nutrition Intervention Change Diet Order: Advance diet starting with GI soft to regular as medically feasible Nutrition Support: n/a at this time Add Supplement/Snack (indicate name/kcal n/a /protein ) Education Handouts Provided Provide: General Healthful nutrition education packet upon admission to floor and/or post planned medical procedures. Goal #1 Diet advanced starting with GI soft to regular by f/u Goal #2 Provide: General Healthful nutrition education packet upon admission to floor and/or post planned medical procedures. Follow-Up By: 09/20/21 Additional Comments f/u: Provide: General Healthful nutrition education packet upon admission to floor and/or post planned medical procedures. diet, po intake
[2021-09-18] MEDS ORDERED: dilTIAZem 25 MG/5 ML INJ IV NR (10:00)
--- NOTE | 2021-09-18 11:27 | Progress Note ---
Assessment and Plan Plan: Telemetry reviewed: Aflutter 110s-120s on monitor Echo 09/18/2021-EF 40% right ventricle is mild to moderately dilated, right ventricle is mildly hypokinetic. Left atrium is mildly dilated. Mild tricuspid regurgitation. Lexiscan MPI stress test 09/18/2021-negative for signs of ischemia Increase to Cardizem 60 mg p.o. every 6 hours. Initiate Amio 400mg PO BID No BBs due to cocaine use Patient anticoagulated on heparin drip Plan for cardioversion with MIR in the a.m. N.p.o. after midnight Patient seen in conjunction with Dr. Cota who agrees with this plan of care. We will continue to follow - Patient Problems (1) Alcohol abuse Current Visit: Yes Status: Acute (2) Alcohol withdrawal Current Visit: Yes Status: Acute (3) Atrial flutter with rapid ventricular response Current Visit: Yes Status: Acute (4) Cocaine abuse Current Visit: Yes Status: Acute (5) Diabetes Current Visit: Yes Status: Acute (6) Hypertension Current Visit: Yes Status: Acute Subjective Date of service: 09/18/21 Principal diagnosis: Detox, Aflutter w/RVR Interval history: Patient ofr stress test this AM Aflutter w/ RVR trending 110s-120s Objective Vital Signs Temp Pulse Pulse Resp BP Pulse Ox 09/18/21 09:02 175/118 09/18/21 09:01 173/122 09/18/21 09:00 165/113 09/18/21 08:57 193/146 09/18/21 08:56 191/127 09/18/21 08:55 186/106 09/18/21 08:44 171/129 09/18/21 07:53 97.5 F L 79 20 140/98 92 09/18/21 05:56 77 20 93 09/18/21 05:02 78 159/96 09/18/21 03:25 97 09/18/21 03:23 98.5 F 78 22 159/96 87 09/18/21 02:00 77 20 93 09/18/21 00:51 77 20 93 09/18/21 00:40 55 L 171/113 09/17/21 23:10 99.1 F 55 L 24 171/113 91 09/17/21 22:00 75 09/17/21 19:11 99.1 F 59 L 22 149/113 95 09/17/21 17:44 77 138/110 09/17/21 17:30 77 09/17/21 17:01 98.1 F 77 18 138/110 93 09/17/21 17:00 77 20 93 09/17/21 16:30 90 09/17/21 16:27 93 09/17/21 16:01 15 105/59 94 09/17/21 15:45 74 15 139/102 92 09/17/21 15:31 75 18 139/102 91 09/17/21 15:15 74 18 105/59 92 09/17/21 15:01 74 39 H 105/59 91 09/17/21 14:45 74 29 H 134/92 92 09/17/21 14:31 74 16 134/92 94 09/17/21 14:15 75 19 140/103 92 09/17/21 14:01 74 30 H 140/103 93 09/17/21 13:45 74 29 H 122/86 92 09/17/21 13:31 75 24 122/86 93 09/17/21 13:15 73 20 140/103 90 09/17/21 13:01 74 20 140/103 83 L 09/17/21 12:45 75 26 H 138/96 86 09/17/21 12:31 75 9 L 138/96 90 09/17/21 12:15 73 36 H 148/103 87 09/17/21 12:01 75 14 147/108 91 09/17/21 11:45 74 23 147/108 91 09/17/21 11:31 74 14 147/108 95 - Physical Examination General: No Apparent Distress HEENT: Positive: PERRL Neck: Positive: trachea midline Cardiac: Positive: Irregularly Regular Lungs: Positive: Normal Breath Sounds Neuro: Positive: Grossly Intact Abdomen: Positive: Soft, Active Bowel Sounds Skin: Negative: Rash, Suspicious Lesions, Ulceration Extremities: Present: upper extr. pulses, lower extr. pulses - Labs and Meds CBC 09/18/21 Range/Units 03:36 Hgb 16.0 H (11.8-15.2) gm/dl Hct 47.6 H (35.5-45.6) % Plt Count 183 (140-440) K/mm3 - Imaging and Cardiology Echo: pending - Telemetry EKG Rhythm: Atrial Flutter - EKG Supraventricular dysrhythmia: atrial flutter
[2021-09-18] MEDS: ASPIRIN 81 MG TAB CHEW PO SCH (11:48)
[2021-09-18] MEDS: GABAPENTIN 100 MG CAP PO SCH (11:48)
[2021-09-18] MEDS: AMIODARONE 200 MG TAB PO SCH ×2 (11:53→22:23)
[2021-09-18] MEDS: INSULIN LISPRO 100 UNIT/ML SUB-Q SCH ×4 (12:34→22:19)
--- NOTE | 2021-09-18 16:41 | Progress Note ---
Subjective - Reason for Consult Consult date: 09/18/21 Reason for consult: mental health evaluation - Chief Complaint Chief complaint: The patient was seen today, he reports doing well. He states that his depression is improving. The patient presents with no withdrawal symptoms and denies cravings for alcohol. He denies any current suicidal/homicidal ideation and denies hallucinations. REVIEW OF SYSTEMS Constitutional: Negative for weight loss ENT: Negative for stridor Respiratory: Negative for cough or hemoptysis All other systems reviewed and are negative MENTAL STATUS EXAMINATION General Appearance and Behavior: Age appropriate, good hygiene, wearing appropriate clothes, good eye contact, cooperative with questioning Cooperation: Participating/engaged Psychomotor Behavior: abnormal Mood:"ok" Affect and affective range: congruent with mood Thought Process:goal directed Thought Content: Not suicidal Speech: Normal volume, Regular rate and rhythm. Intellectual Functioning: Average Suicidal Ideation: Denies Homicidal Ideation: Denies Hallucinations: Denies Delusions: None elicited Impulse Control: Limited Insight and Judgment: limited insight and poor judgment Memory: Normal Attention: Normal Orientation: Alert, oriented. Assessment and Plan (1) Major depressive disorder (2) Alcohol use disorder Current Visit: No Status: Acute RECOMMENDATIONS Continue CIWA protocol Discontinue 1013 Continue Gabapentin 100mg po daily Continue Trazodone 50mg po QHS Risks, benefits and alternatives of medications discussed with the patient, questions answered and consent obtained from patient. PSYCHOTHERAPY: Supportive psychotherapy provided MEDICAL: Per primary team DELIRIUM PRECAUTIONS: Please re-orient patient frequently, keep lights on during the day, and minimize benzodiazepines and opiates as these medications could worsen patient's confusion. 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 Clipper Counters willprovide patient with out patient resources. Case discussed with Dr. Vilchis. FOLLOW-UP: Will sign off. Please contact with any questions and/or concerns. Mental Status Exam - Vital signs Last Vital Signs Temp 98.1 F 09/18/21 13:45 Pulse 87 09/18/21 13:45 Resp 24 09/18/21 13:45 BP 129/90 09/18/21 13:45 Pulse Ox 98 09/18/21 13:45
[2021-09-18] MEDS ORDERED: HEPARIN 10,000 UNITS/10 ML VIAL IV PRN (19:33)
[2021-09-18] MEDS: traZODone 50 MG TAB PO SCH (22:18)
[2021-09-19] MEDS: dilTIAZem 30 MG TAB PO SCH ×2 (01:29→05:11)
[2021-09-19] MEDS: HEPARIN/ 0.45% NACL DRIP 25,000 UNIT/500 ML BAG IV SCH (01:30)
[2021-09-19] MEDS: SODIUM CHLORIDE 0.9% 1000 ML 1,000 ML IV SCH (06:20)
--- NOTE | 2021-09-19 07:50 | Progress Note ---
Assessment and Plan Assessment and plan: hospital course: 09/18: Aflutter in 100-120's. Now downgraded to tele floor bed. Lexiscan is negative, ECHO shows EF 40%. Plan for ANGELINA cardioversion tomorrow AM. remains a 1013, consulted CM for inpatient psych placement. Assessment and Plan (1) Atrial flutter with rapid ventricular response Current Visit: Yes Status: Acute Plan to address problem: Admit the patient to the intensive care unit. Normal saline at the rate of 100 cc/h. Due to the serial cardiac enzyme. Aspirin 81 mg p.o. daily. Lipitor 40 mg p.o. daily. Heparin drip as per protocol. Amiodorone 400 mg po bid, cardizem 60 mg po q6hr Echocardiogram: EF 40%, RV mild to moderate dilated, rv mild hypokinesis. LA mild dilation, Mild TR. (please refer to official echo report) Lexiscan on 09/18: negative for ischemia Cardiology consult - plan for angelina cardioversion tomorrow AM. (2) Alcohol withdrawal Current Visit: Yes Status: Acute Plan to address problem: We will put the patient on CIWA protocol. We also put the patient on banana bag, thiamine and folic acid. We counseled patient regarding quit drinking Psychiatry consulted, recommend inpatient psych hospitalization. Started on gabapentin 100 po daily, trazodone 50 po qhs. Recommend continuation of 1013. CM consulted to inpatient psych placement. (3) Cocaine abuse Current Visit: Yes Status: Acute Plan to address problem: Hx of multisubstance abuse. We counseled the patient regarding quit taking cocaine (4) Diabetes Current Visit: Yes Status: Acute Plan to address problem: 1800 kcal ADA diet. Humalog sliding scale Accu-Chek before meals and at bedtime with moderate dose sliding scale. Diabetic education. BMP in the morning (5) Hypertension Current Visit: Yes Status: Acute Plan to address problem: Hydralazine 10 mg IV every 6 hours as needed. We will continue the home medication. We will monitor the patient closely (6) DVT prophylaxis Current Visit: Yes Status: Acute Plan to address problem: Heparin drip as per DVT prophylaxis. Protonix 40 mg p.o. daily for GI pr ophylaxis. Patient is a full code. Hospitalist Physical - Physical exam Narrative exam: General appearance: Present: mild distress, well-nourished - EENT Eyes: Present: PERRL ENT: hearing intact, clear oral mucosa - Neck Neck: Present: supple, normal ROM - Respiratory Respiratory effort: normal Respiratory: bilateral: diminished - Cardiovascular Rhythm: regularly irregular Heart Sounds: Present: S1 & S2. Absent: rub, click - Extremities Extremities: pulses symmetrical, No edema Peripheral Pulses: within normal limits - Abdominal General gastrointestinal: Present: soft, non-tender, non-distended, normal bowel sounds Male genitourinary: Present: normal - Integumentary Integumentary: Present: clear, warm, dry - Musculoskeletal Musculoskeletal: gait normal, strength equal bilaterally - Psychiatric Psychiatric: appropriate mood/affect, intact judgment & insight - Neurologic Neurologic: CNII-XII intact, moves all extremities - Constitutional Vitals: Temp Pulse Resp BP Pulse Ox 97.7 F 103 H 18 126/89 95 09/19/21 04:40 09/19/21 05:11 09/19/21 04:40 09/19/21 05:11 09/19/21 04:40 General appearance: Present: mild distress, well-nourished HEART Score - HEART Score Troponin: Troponin T < 0.010 ng/mL (0.00-0.029) 09/17/21 03:35 Results - Labs CBC & Chem 7: 09/18/21 03:36 09/17/21 03:35 Labs: Laboratory Last Values WBC 7.1 K/mm3 (4.5-11.0) 09/17/21 03:35 RBC 5.01 M/mm3 (3.65-5.03) 09/17/21 03:35 Hgb 16.0 gm/dl (11.8-15.2) H 09/18/21 03:36 Hct 47.6 % (35.5-45.6) H 09/18/21 03:36 MCV 96 fl (84-94) H 09/17/21 03:35 MCH 31 pg (28-32) 09/17/21 03:35 MCHC 33 % (32-34) 09/17/21 03:35 RDW 15.0 % (13.2-15.2) 09/17/21 03:35 Plt Count 183 K/mm3 (140-440) 09/18/21 03:36 Lymph % (Auto) 29.1 % (13.4-35.0) 09/17/21 03:35 Yell % (Auto) 11.4 % (0.0-7.3) H 09/17/21 03:35 Eos % (Auto) 4.4 % (0.0-4.3) H 09/17/21 03:35 Baso % (Auto) 0.5 % (0.0-1.8) 09/17/21 03:35 Lymph # (Auto) 2.1 K/mm3 (1.2-5.4) 09/17/21 03:35 Yell # (Auto) 0.8 K/mm3 (0.0-0.8) 09/17/21 03:35 Eos # (Auto) 0.3 K/mm3 (0.0-0.4) 09/17/21 03:35 Baso # (Auto) 0.0 K/mm3 (0.0-0.1) 09/17/21 03:35 Seg Neutrophils % 54.6 % (40.0-70.0) 09/17/21 03:35 Seg Neutrophils # 3.9 K/mm3 (1.8-7.7) 09/17/21 03:35 PT 13.2 Sec. (12.2-14.9) 09/16/21 19:33 INR 0.90 (0.87-1.13) 09/16/21 19:33 APTT 34.5 Sec. (24.2-36.6) 09/16/21 19:33 Heparin Anti-Xa Level 0.39 U.I./ml (0.3-0.7) 09/18/21 23:29 Sodium 140 mmol/L (137-145) 09/17/21 03:35 Potassium 3.7 mmol/L (3.6-5.0) D 09/17/21 03:35 Chloride 101.9 mmol/L (98-107) 09/17/21 03:35 Carbon Dioxide 26 mmol/L (22-30) 09/17/21 03:35 Anion Gap 16 mmol/L 09/17/21 03:35 BUN 10 mg/dL (9-20) 09/17/21 03:35 Creatinine 1.1 mg/dL (0.8-1.3) 09/17/21 03:35 Estimated GFR > 60 ml/min 09/17/21 03:35 BUN/Creatinine Ratio 9 % 09/17/21 03:35 Glucose 108 mg/dL (75-100) H 09/17/21 03:35 POC Glucose 119 mg/dL (70-105) H 09/18/21 21:01 Calcium 8.7 mg/dL (8.4-10.2) 09/17/21 03:35 Magnesium 1.80 mg/dL (1.7-2.3) 09/16/21 18:11 Total Bilirubin 0.60 mg/dL (0.1-1.2) 09/16/21 18:11 AST 23 units/L (5-40) 09/16/21 18:11 ALT 11 units/L (7-56) 09/16/21 18:11 Alkaline Phosphatase 90 units/L (35-129) 09/16/21 18:11 Total Creatine Kinase 124 units/L (55-170) 09/16/21 18:11 Troponin T < 0.010 ng/mL (0.00-0.029) 09/17/21 03:35 Total Protein 8.1 g/dL (6.3-8.2) 09/16/21 18:11 Albumin 3.9 g/dL (3.9-5) 09/16/21 18:11 Albumin/Globulin Ratio 0.9 % 09/16/21 18:11 Lipase 20 units/L (13-60) 09/16/21 18:16 TSH 0.623 mlU/mL (0.270-4.200) 09/16/21 18:16 Free T4 1.16 ng/dL (0.76-1.46) 09/16/21 18:16 Urine Color Yellow (Yellow) 09/17/21 03:10 Urine Turbidity Clear (Clear) 09/17/21 03:10 Urine pH 6.0 (5.0-7.0) 09/17/21 03:10 Ur Specific [place] 1.014 (1.003-1.030) 09/17/21 03:10 Urine Protein 100 mg/dl mg/dL (Negative) 09/17/21 03:10 Urine Glucose (UA) Neg mg/dL (Negative) 09/17/21 03:10 Urine Ketones Neg mg/dL (Negative) 09/17/21 03:10 Urine Blood Neg (Negative) 09/17/21 03:10 Urine Nitrite Neg (Negative) 09/17/21 03:10 Urine Bilirubin Neg (Negative) 09/17/21 03:10 Urine Urobilinogen < 2.0 mg/dL (<2.0) 09/17/21 03:10 Ur Leukocyte Esterase Neg (Negative) 09/17/21 03:10 Urine WBC (Auto) 1.0 /HPF (0.0-6.0) 09/17/21 03:10 Urine RBC (Auto) 3.0 /HPF (0.0-6.0) 09/17/21 03:10 Urine Mucus Few /HPF 09/17/21 03:10 Salicylates < 0.3 mg/dL (2.8-20.0) L 09/16/21 18:11 Urine Opiates Screen Presumptive negative 09/17/21 03:10 Urine Methadone Screen Presumptive negative 09/17/21 03:10 Acetaminophen 5.0 ug/mL (10.0-30.0) L 09/16/21 18:11 Ur Barbiturates Screen Presumptive negative 09/17/21 03:10 Ur Phencyclidine Scrn Presumptive negative 09/17/21 03:10 Ur Amphetamines Screen Presumptive negative 09/17/21 03:10 U Benzodiazepines Scrn Presumptive negative 09/17/21 03:10 Urine Cocaine Screen Presumptive positive 09/17/21 03:10 U Marijuana (THC) Screen Presumptive positive 09/17/21 03:10 Drugs of Abuse Note Disclamer 09/17/21 03:10 Plasma/Serum Alcohol 0.02 % (0-0.07) 09/16/21 18:11 Brown/IV: Voiding Method Urinal Active Medications - Current Medications Current Medications: Generic Name Dose Route Start Last Admin Trade Name Freq PRN Reason Stop Dose Admin Acetaminophen 650 mg 09/16/21 21:56 Acetaminophen 325 Mg Tab PO Q6H PRN Pain, Mild (1-3) Amiodarone HCl 400 mg 09/18/21 12:00 09/18/21 22:23 Amiodarone 200 Mg Tab PO 400 mg BID CHARLENE Administration Aspirin 81 mg 09/17/21 10:00 09/18/21 11:48 Aspirin 81 Mg Tab Chew PO 81 mg QDAY CHARLENE Administration Atorvastatin Calcium 40 mg 09/16/21 22:00 09/18/21 22:18 Atorvastatin 40 Mg Tab PO 40 mg QHS CHARLENE Administration Benzocaine 3 spray 09/19/21 08:00 Benzocaine 20% [place] 0.5 Ml Unit Dose MM 09/19/21 21:00 PREOP NR Dextrose 0 ml 09/16/21 21:56 Dextrose 50% In Water (25gm) 50 Ml Syringe IV Q30MIN PRN Hypoglycemia Protocol Diltiazem HCl 60 mg 09/18/21 12:00 09/19/21 05:11 Diltiazem 30 Mg Tab PO 60 mg Q6HR CHARLENE Administration Gabapentin 100 mg 09/17/21 13:00 09/18/21 11:48 Gabapentin 100 Mg Cap PO 100 mg DAILY CHARLENE Administration Heparin Sodium (Porcine) 3,900 unit 09/18/21 19:33 Heparin 10,000 Units/10 Ml Vial 40 unit/kg (3900 unit) IV Q6H PRN Anti-Xa Assay < 0.1 units/ml Heparin Sodium/Sodium Chloride 25,000 unit in 500 mls @ 26 mls/hr 09/16/21 22:00 09/19/21 01:30 Heparin/ 0.45% Nacl-25,000 Unit/500 Ml IV 1,650 units/hr TITR CHARLENE 33 mls/hr Administration Protocol 1,300 UNITS/HR Sodium Chloride 1,000 mls @ 100 mls/hr 09/16/21 22:00 09/19/21 06:20 Nacl 0.9% 1000 Ml IV 100 mls/hr DIRECT CHARLENE Administration Sodium Chloride 1,000 mls @ 42 mls/hr 09/19/21 08:00 Nacl 0.9% 1000 Ml IV 09/19/21 22:00 DIRECT CHARLENE Insulin Human Lispro 0 unit 09/16/21 22:00 09/18/21 22:19 Insulin Lispro 100 Unit/Ml SUB-Q Not Given ACHS CHARLENE Protocol Lorazepam 2 mg 09/16/21 21:01 09/18/21 00:41 Lorazepam 2 Mg/Ml Vial IV 2 mg Q1HR PRN Administration CIWA-Ar 8-15 Lorazepam 4 mg 09/16/21 21:01 Lorazepam 2 Mg/Ml Vial IV Q1HR PRN CIWA-Ar 16-25 Morphine Sulfate 2 mg 09/16/21 21:56 Morphine 4 Mg/1 Ml Inj IV Q5MIN PRN Chest Pain unrelieved by NTG Sodium Chloride 10 ml 09/16/21 21:56 09/18/21 22:23 Sodium Chloride 0.9% 10 Ml Flush Syringe IV 10 ml PRN PRN Administration LINE FLUSH Tramadol HCl 50 mg 09/16/21 21:56 Tramadol 50 Mg Tab PO Q6H PRN Pain, Moderate (4-6) Trazodone HCl 50 mg 09/17/21 22:00 09/18/21 22:18 Trazodone 50 Mg Tab PO 50 mg QHS CHARLENE Administration Nutrition/Malnutrition Assess - Dietary Evaluation Nutrition/Malnutrition Findings: Nutrition Notes Start: 09/17/21 10:53 Freq: Status: Active Protocol: Document 09/18/21 11:54 GALA (Rec: 09/18/21 12:23 GALA [id number]) Nutrition Notes Need for Assessment generated from: bus greaser Initial or Follow up Reassessment Current Diagnosis Diabetes,Hypertension Other Pertinent Diagnosis ETOH/cocaine detox, Atrial flutter w/rapid ventricular response. Current Diet Cardiac/Consistent Carbohydrates Diet (B 09/18), NPO (from 0:01 09/19). Labs/Tests 09/18: Nutritionally unremarkable. Pertinent Medications 09/18: Nutritionally unremarkable. Height 5 ft 9.6 in Weight 98.5 kg [place] Body Weight (kg) 74.36 BMI 31.5 Weight Status Obese Subjective/Other Information RD consult for Skin risk assessment. Percent of energy/protein needs met: Prescribed C/CC Diet provides for energy/protein needs (1, 977 Kcal/86 g) during LOS. Burn Absent Trauma Absent GI Symptoms None Food Allergy No Skin Integrity/Comment Clear, warm, dry. Minimum of two criteria No #1 Nutrition Diagnosis No nutrition diagnosis at this time Comments: Pt shows no signs of concern for skin risk at the time. Is patient on ventilator? No Is Patient Ambulatory and/or Out of Bed Yes REE-([place]. Jeor-ambulatory/OOB) [ 2346.344 NUTR.MSJOOB] Kcal/Kg value to use for calculation 20 Approximate Energy Requirements Using 1970 kcal/Kg Calculation Used for Recommendations Kcal/kg Additional Notes Protein 1-1.2 g/kg; 74-89 g/ day (from IBW). Fluids: 1 ml/kcal, or as per MD. Nutrition Intervention Change Diet Order: Continue Cardiac/Consistent Carbohydrates Diet until NPO starts at 0:01 09/19. Goal #1 Maintain body weight within +/ -3% of current BWt during LOS. Goal #2 Reach and maintain acceptable chemistry lab values during LOS. Follow-Up By: 09/20/21 Additional Comments Continue monitoring food tolerance, %PO intake of meals , Hydration, and BM.
[2021-09-19] MEDS ORDERED: BENZOCAINE 20% TOP SPRAY 0.5 ML UNIT DOSE MM NR (08:00)
[2021-09-19] MEDS ORDERED: SODIUM CHLORIDE 0.9% 1000 ML 1,000 ML IV SCH (08:00)
--- NOTE | 2021-09-19 08:00 | Anesthesia Consultation ---
Anesthesia Consult and Med Hx Date of service: 09/19/21 - Airway Anesthetic Teeth Evaluation: Poor (multiple missing, chipped teeth) ROM Head & Neck: Adequate Mental/Hyoid Distance: Adequate Mallampati Class: Class II Intubation Access Assessment: Probably Good - Pre-Operative Health Status ASA Pre-Surgery Classification: ASA3 Proposed Anesthetic Plan: MAC - Pulmonary Hx Smoking: Yes Hx Asthma: No Hx Pneumonia: No - Cardiovascular System Hx Hypertension: Yes Hx Cardia Arrhythmia: Yes (atrial flutter ) - Other Systems Hx Alcohol Use: Yes Hx Substance Use: Yes (cocaine and marijuana)
--- NOTE | 2021-09-19 08:04 | Anesthesia Day of Surgery ---
Anesthesia Day of Surgery - Day of Surgery Patient Examined: Yes Patient H&P Reviewed: Yes Patient is NPO: Yes
[2021-09-19] MEDS ORDERED: LIDOCAINE MPF (2%) 20 MG/1 ML VIAL 5 ML ONE (08:11)
[2021-09-19] MEDS ORDERED: propofoL 200 MG/20 ML VIAL IV ONE ×2 (08:11)
--- NOTE | 2021-09-19 09:02 | Progress Note ---
Assessment and Plan 56-year-old male with mild to moderate LV dysfunction with history of cocaine abuse alcohol abuse had uncontrolled atrial flutter despite medication patient went through a transesophageal echocardiogram today showed no clots in the left atrial left atrial appendage with no PFO. Patient has successful cardioversion to sinus rhythm. Patient will continue heparin and transition to Eliquis today. Patient will transition to long-acting Cardizem CD 240 mg. Patient will not be on beta-eva secondary to cocaine abuse. Patient will start losartan 50 mg from cardiomyopathy. Patient is not in acute heart failure. Patient will contact our office for patient assistance for Eliquis. May be discharged this afternoon if patient is maintaining sinus rhythm. - Patient Problems (1) Cardiomyopathy Current Visit: Yes Status: Acute Qualifiers: Cardiomyopathy type: alcoholic Qualified Code(s): I42.6 - Alcoholic cardiomyopathy (2) Alcohol withdrawal Current Visit: Yes Status: Acute Qualifiers: Complication of substance-induced condition: uncomplicated Qualified Code(s): F10.230 - Alcohol dependence with withdrawal, uncomplicated (3) Atrial flutter with rapid ventricular response Current Visit: Yes Status: Acute (4) Cocaine abuse Current Visit: Yes Status: Chronic (5) Diabetes Current Visit: Yes Status: Chronic (6) Hypertension Current Visit: Yes Status: Chronic Qualifiers: Hypertension type: primary hypertension Qualified Code(s): I10 - Essential (primary) hypertension Subjective Date of service: 09/19/21 Principal diagnosis: Detox, Aflutter w/RVR Interval history: no palpations Objective Vital Signs Temp Pulse Pulse Pulse Resp Resp Resp 09/19/21 08:35 110 H 32 H 09/19/21 08:29 93 H 27 H 09/19/21 08:10 81 21 09/19/21 05:11 103 H 09/19/21 04:40 97.7 F 103 H 18 09/19/21 01:29 128 H 09/18/21 22:00 128 H 09/18/21 20:39 98.9 F 105 H 18 09/18/21 13:52 98.1 F 24 09/18/21 13:45 98.1 F 87 24 09/18/21 12:15 98.1 F 152 H 24 09/18/21 09:02 09/18/21 09:01 09/18/21 09:00 BP BP BP BP Pulse Ox Pulse Ox Pulse Ox 09/19/21 08:35 167/102 95 95 09/19/21 08:29 176/105 97 09/19/21 08:10 164/108 96 09/19/21 05:11 126/89 09/19/21 04:40 126/89 95 09/19/21 01:29 153/113 09/18/21 22:00 09/18/21 20:39 153/113 100 09/18/21 13:52 129/90 09/18/21 13:45 129/90 98 09/18/21 12:15 173/130 96 09/18/21 09:02 175/118 09/18/21 09:01 173/122 09/18/21 09:00 165/113 - Physical Examination General: No Apparent Distress HEENT: Positive: PERRL Neck: Positive: trachea midline Cardiac: Positive: Reg Rate and Rhythm Lungs: Positive: clear to auscultation Neuro: Positive: Grossly Intact Abdomen: Positive: Soft, Active Bowel Sounds Skin: Negative: Rash, Suspicious Lesions, Ulceration Extremities: Present: upper extr. pulses, lower extr. pulses - Imaging and Cardiology Pharmacologic stress test: report reviewed (normal myocardial perfusion no signficant ischemia) Echo: report reviewed (ef 40% mild lae) MIR: report reviewed (no clot in la or donnie no pfo moderate to severe MR ) - Telemetry EKG Rhythm: Atrial Flutter
--- NOTE | 2021-09-19 09:18 | Electrocardiograph Report ---
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
--- NOTE | 2021-09-19 09:44 | Cardiac Catherization Report ---
DATE OF SERVICE: 09/19/2021 CARDIOVERSION CLINICAL INFORMATION: This is a 56-year-old patient with drug abuse, came in with atrial flutter with [id number] LV dysfunction with negative stress test. The patient's rate was not controlled with medication. The patient is on IV heparin. The patient had a transesophageal echocardiogram, showed no cardiac contraindication for cardioversion. No clots in the left atrial appendage. ANESTHESIA: The patient was cardioverted with single biphasic 360 joules from atrial flutter to sinus rhythm. SUMMARY: Successful cardioversion from atrial flutter to sinus rhythm with 1 successful 360 joules. The patient tolerated the procedure well. TID: [id number] RECEIPT: [id number] RACHEL/NANCY/EBONY
[2021-09-19 09:58] VITALS: BP 139/104
[2021-09-19] MEDS ORDERED: dilTIAZem CD 240 MG CAP PO SCH (10:00)
[2021-09-19] MEDS ORDERED: LOSARTAN 50 MG TAB PO SCH (10:00)
[2021-09-19] MEDS ORDERED: AMIODARONE 200 MG TAB PO SCH (10:00)
--- NOTE | 2021-09-19 10:24 | Nuclear Medicine Report ---
APPROVED REPORT Exam: Nuclear Stress Test Indication: Chest pain Ht: 5 ft 9 in Wt: 167 lbs BSA: 1.91 m2 BMI: 24.65 Rhythm: Atrial Fibrillation with RVR Stress Test Details Stress Test: Pharmacologic stress testing performed using 0.4 mg of regadenoson per 5 mL given IV over 10 seconds. Reason for pharmacologic stress test: physical limitation. HR Resting HR: 118 bpm Max HR Achieved: 151 bpm Max Heart Rate (APMHR): 162.842738 bpm Target HR (85% APMHR): 137.263821 bpm % of APMHR: 93.21 Recovery HR: 125 bpm HR response to stress: Normal HR response to stress BP Resting BP: 165/106 mmHg Max BP: 193/146 mmHg Recovery BP: 173/113 mmHg BP response to stress: Abnormal hypertensive response to stress. ECG Resting ECG: Atrial Fibrillation with RVR Stress ECG: Atrial Fibrillation with RVR Arrhythmia: None Recovery ECG: Atrial Fibrillation with RVR Recovery Arrhythmia: None Clinical Reason for Termination: Completed protocol Stress Symptoms: None NM EXAM: Myocardial Perfusion REST/STRESS Resting Data Rest SPECT myocardial perfusion imaging was performed in supine position 45 minutes following the intravenous injection of 10 mCi of Tc-99m Myoview. Time of rest injection: 0700 Pharmacologic Stress Pharmacologic stress test was performed by injecting Regadenoson 0.4 mg IV push followed by the intravenous injection of 30 mCi of Tc-99m Myoview. Time of stress injection: 08:53:10 Gated Stress SPECT was performed 30 minutes after stress injection. Stress only was performed in the Supine position. Study Data TID = 1.03. Perfusion Nuclear Conclusion ECG Findings: equivocal Clinical Findings: negative for ischemia Nuclear Findings: negative for ischemia Exercise Capacity: not assessed Left Ventricular Function: abnormal negative lexiscan ekg baseline aflutter Normal study. No scintigraphic evidence for myocardial ischemia or scar. NO gated lv function secondary to atrial flutter echo for lv function
[2021-09-19] MEDS: GABAPENTIN 100 MG CAP PO SCH (10:59)
[2021-09-19] MEDS: ASPIRIN 81 MG TAB CHEW PO SCH (10:59)
[2021-09-19] MEDS ORDERED: APIXABAN 5 MG TAB PO SCH (11:00)
--- NOTE | 2021-09-19 13:22 | Discharge Summary ---
Providers - Providers Date of Admission: 09/17/21 01:29 Date of discharge: 09/19/21 Attending physician: LANCE DE LA CRUZ MD 09/16/21 Consult to Cardiac Rehabilitation [CONS] Routine Reason For Exam: Phase I 09/16/21 19:24 Consult to Physician [CONS] Urgent Comment: Dr. Arreaga spoke with Dr. Hernandez @ [phone] Consulting Provider: FIONA HERNANDEZ Physician Instructions: Reason For Exam: atrial flutter 09/16/21 21:57 Consult to Dietitian/Nutrition [CONS] Routine Physician Instructions: Reason For Exam: Reason for Consult: Diet education 09/18/21 10:28 Consult to Case Management [CONS] Routine Services Needed at Discharge: Other Notified:: CASE MANAGEMENT Comment:: inpatient psych facility arrangements Additional Physician Instructions: inpatient psych placement. Primary care physician: SPD MANAGER Hospitalization Reason for admission: Short of breath, palpitations Condition: Stable Hospital course: hospital course: 09/18: Aflutter in 100-120's. Now downgraded to tele floor bed. Lexiscan is negative, ECHO shows EF 40%. Plan for ANGELINA cardioversion tomorrow AM. remains a 1013, consulted CM for inpatient psych placement. 09/19: successful ANGELINA cardioversion by cardiology. Patient maintaining normal sinus rhythm and is currently asymptomatic. Discussed patient case with psychiatry team. They have rescinded 1013 and thus patient is medically clear for discharge. He will be given resources for EtOH cessation. Patient be discharged home with prescriptions for atorvastatin, aspirin, Eliquis, Cardizem CD, amiodarone, losartan. He was advised to avoid beta-blockers given his history of cocaine abuse. He is advised to follow-up with [facility] as an outpatient with cardiology, Dr. Cota. Information given below for the clinic. Dr Geoff Cota [facility] Address: [address] [place] [id number] Assessment and Plan (1) Atrial flutter with rapid ventricular response Current Visit: Yes Status: Acute Plan to address problem: Admit the patient to the intensive care unit. Normal saline at the rate of 100 cc/h. Due to the serial cardiac enzyme. Aspirin 81 mg p.o. daily. Lipitor 40 mg p.o. daily. Heparin drip as per protocol. Amiodorone 400 mg po bid, cardizem 60 mg po q6hr Echocardiogram: EF 40%, RV mild to moderate dilated, rv mild hypokinesis. LA mild dilation, Mild TR. (please refer to official echo report) Lexiscan on 09/18: negative for ischemia Cardiology consult - plan for angelina cardioversion tomorrow AM. (2) Alcohol withdrawal Current Visit: Yes Status: Acute Plan to address problem: We will put the patient on CIWA protocol. We also put the patient on banana bag, thiamine and folic acid. We counseled patient regarding quit drinking Psychiatry consulted, recommend inpatient psych hospitalization. Started on gabapentin 100 po daily, trazodone 50 po qhs. Recommend continuation of 1013. CM consulted to inpatient psych placement. (3) Cocaine abuse Current Visit: Yes Status: Acute Plan to address problem: Hx of multisubstance abuse. We counseled the patient regarding quit taking cocaine (4) Diabetes Current Visit: Yes Status: Acute Plan to address problem: 1800 kcal ADA diet. Humalog sliding scale Accu-Chek before meals and at bedtime with moderate dose sliding scale. Diabetic education. BMP in the morning (5) Hypertension Current Visit: Yes Status: Acute Plan to address problem: Hydralazine 10 mg IV every 6 hours as needed. We will continue the home medication. We will monitor the patient closely (6) DVT prophylaxis Current Visit: Yes Status: Acute Plan to address problem: Heparin drip as per DVT prophylaxis. Protonix 40 mg p.o. daily for GI prophylaxis. Patient is a full code. Disposition: HOME / SELF CARE / HOMELESS Final Discharge Diagnosis (Prints w/discharge instructions): Atrial fibrillation with rapid ventricular response Time spent for discharge: 35 - Discharge Diagnoses (1) Alcohol abuse Status: Acute (2) Atrial flutter with rapid ventricular response Status: Acute (3) Cardiomyopathy Status: Acute Qualifiers: Cardiomyopathy type: alcoholic Qualified Code(s): I42.6 - Alcoholic cardiomyopathy (4) Diabetes Status: Chronic (5) Hypertension Status: Chronic Qualifiers: Hypertension type: primary hypertension Qualified Code(s): I10 - Essential (primary) hypertension Core Measure Documentation - Palliative Care Palliative Care/ Comfort Measures: Not Applicable - Core Measures Any of the following diagnoses?: none Exam - Physical Exam Narrative exam: General appearance: Present: mild distress, well-nourished - EENT Eyes: Present: PERRL ENT: hearing intact, clear oral mucosa - Neck Neck: Present: supple, normal ROM - Respiratory Respiratory effort: normal Respiratory: bilateral: diminished - Cardiovascular Rhythm: Regular rate and rhythm Heart Sounds: Present: S1 & S2. Absent: rub, click - Extremities Extremities: pulses symmetrical, No edema Peripheral Pulses: within normal limits - Abdominal General gastrointestinal: Present: soft, non-tender, non-distended, normal bowel sounds Male genitourinary: Present: normal - Integumentary Integumentary: Present: clear, warm, dry - Musculoskeletal Musculoskeletal: gait normal, strength equal bilaterally - Psychiatric Psychiatric: appropriate mood/affect, intact judgment & insight - Neurologic Neurologic: CNII-XII intact, moves all extremities - Constitutional Vitals: Temp Pulse Resp BP Pulse Ox 98 F 92 H 24 139/104 96 09/19/21 08:44 09/19/21 09:45 09/19/21 09:45 09/19/21 09:45 09/19/21 09:45 Plan Activity: no restrictions Weight Bearing Status: Full Weight Bearing Diet: low fat, low cholesterol, low salt, diabetic Follow up with: PRIMARY CARE, [Primary Care Provider] - 3-5 Days Prescriptions: AtorvaSTATin [Lipitor] 40 mg PO QHS 30 Days #30 tablet Aspirin [Aspirin BABY CHEW TAB] 81 mg PO QDAY 30 Days #30 tab.chew dilTIAZem CD [Cardizem CD] 240 mg PO QDAY 30 Days #30 capsule Amiodarone [Cordarone 200 MG TAB] 200 mg PO QDAY 30 Days #30 tablet Losartan [Cozaar] 50 mg PO QDAY 30 Days #30 tablet Apixaban [Eliquis] 5 mg PO Q12HR 30 Days #60 tablet
--- NOTE | 2021-09-20 09:30 | Electrocardiograph Report ---
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
== END 2021-09-19 16:15 | disposition home or self-care (01) | DRG 309 ==
LOC: ED 14:23 → CC1 09-17 01:29 → 4A 09-17 16:09
PROVIDERS: ADMIT Hospitalist; ATTEND Internal Medicine
PROC: 5A2204Z Restoration of Cardiac Rhythm, Single (ICD-10-PCS; principal; 2021-09-19)
DX: I48.92 Unspecified atrial flutter (principal); F10.239 Alcohol dependence with withdrawal, unspecified; F14.10 Cocaine abuse, uncomplicated; I10 Essential (primary) hypertension; E11.9 Type 2 diabetes mellitus without complications; F17.210 Nicotine dependence, cigarettes, uncomplicated; I42.6 Alcoholic cardiomyopathy; Z20.822 Contact with and (suspected) exposure to COVID-19
CPT/HCPCS: 36415; 71045; 78452; 80048; 80053; 80307; 80320; 81001; 82550; 82962; 83690; 83735; 84439; 84443; 84484; 85014; 85018; 85025; 85049; 85520; 85610; 85730; 93005; 93017; 93306; 93312; 93320; 93325; 99406; G0378; J3490; J7120; Q0162; A9502; G0480; J1644; J2060; J2405; J2704; J2785; J3411; J3475; J7030

== ENCOUNTER 2021-09-20 13:18 | Emergency (ER) | payer SELFPAY ==
--- NOTE | 2021-09-20 17:23 | Emergency Department Report ---
HPI - General Chief Complaint: Abdominal Pain Time Seen by Provider: 09/20/21 17:10 - HPI HPI: Reassessment 4 The patient is a 56-year-old male presenting with a chief complaint of medical clearance for detox. Patient states he supposed to go to [place] for detox from alcohol and cocaine use. Patient states he is here for medical clearance. When asked how his feeling the patient replies "I feel pretty good." Patient denies complaints and states he last consumed alcohol and cocaine earlier today. ED Past Medical Hx - Past Medical History Hx Hypertension: Yes Hx Diabetes: Yes - Surgical History Past Surgical History?: No - Family History Family history: no significant - Social History Smoking Status: Current Every Day Smoker (1 pack/day) Substance Use Type: Alcohol (Daily. Last use today), Cocaine (Last used today) - Medications Home Medications: Home Medications Medication Instructions Recorded Confirmed Last Taken Type Amiodarone [Cordarone 200 MG TAB] 200 mg PO QDAY 30 Days #30 tablet 09/19/21 Unknown Rx Apixaban [Eliquis] 5 mg PO Q12HR 30 Days #60 tablet 09/19/21 Unknown Rx Aspirin [Aspirin BABY CHEW TAB] 81 mg PO QDAY 30 Days #30 tab.chew 09/19/21 Unknown Rx AtorvaSTATin [Lipitor] 40 mg PO QHS 30 Days #30 tablet 09/19/21 Unknown Rx Losartan [Cozaar] 50 mg PO QDAY 30 Days #30 tablet 09/19/21 Unknown Rx dilTIAZem CD [Cardizem CD] 240 mg PO QDAY 30 Days #30 capsule 09/19/21 Unknown Rx ED Review of Systems ROS: Stated complaint: FOLLOW UP Other details as noted in HPI Constitutional: no symptoms reported Eyes: denies: eye pain ENT: denies: throat pain Respiratory: no symptoms reported Cardiovascular: denies: chest pain Endocrine: no symptoms reported Gastrointestinal: denies: abdominal pain Genitourinary: denies: dysuria Musculoskeletal: denies: back pain Neurological: denies: headache Physical Exam - Physical Exam Vital Signs: Vital Signs 09/20/21 16:54 Respiratory 18 Rate O2 Sat by Pulse 100 Oximetry Physical Exam: GENERAL: The patient is well-developed well-nourished male sitting in stretcher not appearing to be in acute distress. [] HEENT: Normocephalic. Atraumatic. Extraocular motions are intact. Patient has moist mucous membranes. NECK: Supple. Trachea midline CHEST/LUNGS: Clear to auscultation. There is no respiratory distress noted. HEART/CARDIOVASCULAR: Irregularly irregular. There is no tachycardia. There is no gallop rub or murmur. ABDOMEN: Abdomen is soft, nontender. Patient has normal bowel sounds. There is no abdominal distention. SKIN: There is no rash. There is no edema. There is no diaphoresis. NEURO: The patient is awake, alert, and oriented. The patient is cooperative. The patient has no focal neurologic deficits. The patient has normal speech MUSCULOSKELETAL: There is no evidence of acute injury. ED Course Vital Signs 09/20/21 16:54 Respiratory 18 Rate O2 Sat by Pulse 100 Oximetry ED Medical Decision Making - Lab Data Result diagrams: 09/20/21 17:29 09/20/21 17:29 Laboratory Tests 09/20/21 09/20/21 09/20/21 17:29 17:29 17:29 WBC 10.2 RBC 4.92 Hgb 15.3 H Hct 46.7 H MCV 95 H MCH 31 MCHC 33 RDW 14.9 Plt Count 196 Lymph % (Auto) 15.7 George % (Auto) 11.2 H Eos % (Auto) 1.3 Baso % (Auto) 0.5 Lymph # (Auto) 1.6 George # (Auto) 1.1 H Eos # (Auto) 0.1 Baso # (Auto) 0.1 Seg Neutrophils % 71.3 H Seg Neutrophils # 7.3 Sodium 137 Potassium 4.2 Chloride 101.3 Carbon Dioxide 22 Anion Gap 18 BUN 12 Creatinine 1.1 Estimated GFR > 60 BUN/Creatinine Ratio 11 Glucose 94 Calcium 9.2 Urine Color Urine Turbidity Urine pH Ur Specific [place] Urine Protein Urine Glucose (UA) Urine Ketones Urine Blood Urine Nitrite Urine Bilirubin Urine Urobilinogen Ur Leukocyte Esterase Urine WBC (Auto) Urine RBC (Auto) U Epithel Cells (Auto) Urine Mucus Salicylates < 0.3 L Urine Opiates Screen Urine Methadone Screen Acetaminophen Ur Barbiturates Screen Ur Phencyclidine Scrn Ur Amphetamines Screen U Benzodiazepines Scrn Plasma/Serum Alcohol 09/20/21 09/20/21 09/20/21 17:29 17:29 19:58 WBC RBC Hgb Hct MCV MCH MCHC RDW Plt Count Lymph % (Auto) George % (Auto) Eos % (Auto) Baso % (Auto) Lymph # (Auto) George # (Auto) Eos # (Auto) Baso # (Auto) Seg Neutrophils % Seg Neutrophils # Sodium Potassium Chloride Carbon Dioxide Anion Gap BUN Creatinine Estimated GFR BUN/Creatinine Ratio Glucose Calcium Urine Color Yellow Urine Turbidity Clear Urine pH 5.0 Ur Specific [place] 1.019 Urine Protein >500 Urine Glucose (UA) Neg Urine Ketones Neg Urine Blood Sm Urine Nitrite Neg Urine Bilirubin Neg Urine Urobilinogen 4.0 Ur Leukocyte Esterase Neg Urine WBC (Auto) 2.0 Urine RBC (Auto) 4.0 U Epithel Cells (Auto) < 1.0 Urine Mucus Few Salicylates Urine Opiates Screen Urine Methadone Screen Acetaminophen 5.0 L Ur Barbiturates Screen Ur Phencyclidine Scrn Ur Amphetamines Screen U Benzodiazepines Scrn Plasma/Serum Alcohol < 0.01 09/20/21 19:58 WBC RBC Hgb Hct MCV MCH MCHC RDW Plt Count Lymph % (Auto) George % (Auto) Eos % (Auto) Baso % (Auto) Lymph # (Auto) George # (Auto) Eos # (Auto) Baso # (Auto) Seg Neutrophils % Seg Neutrophils # Sodium Potassium Chloride Carbon Dioxide Anion Gap BUN Creatinine Estimated GFR BUN/Creatinine Ratio Glucose Calcium Urine Color Urine Turbidity Urine pH Ur Specific [place] Urine Protein Urine Glucose (UA) Urine Ketones Urine Blood Urine Nitrite Urine Bilirubin Urine Urobilinogen Ur Leukocyte Esterase Urine WBC (Auto) Urine RBC (Auto) U Epithel Cells (Auto) Urine Mucus Salicylates Urine Opiates Screen Negative Urine Methadone Screen Negative Acetaminophen Ur Barbiturates Screen Negative Ur Phencyclidine Scrn Negative Ur Amphetamines Screen Negative U Benzodiazepines Scrn Negative Plasma/Serum Alcohol - EKG Data -: EKG Interpreted by Nd EKG shows normal: sinus rhythm, axis Rate: tachycardia (107 beats per) - EKG Data When compared to previous EKG there are: previous EKG unavailable Interpretation: other (No ischemic changes) - Differential Diagnosis Atrial fibrillation, polysubstance abuse Critical care attestation.: If time is entered above; I have spent that time in minutes in the direct care of this critically ill patient, excluding procedure time. ED Disposition Clinical Impression: Cocaine abuse, Alcohol abuse, Medical clearance for psychiatric admission Disposition: 62 INPATIENT REHAB FACILITY Is pt being admited?: No Does the pt Need Aspirin: No Condition: Stable Additional Instructions: In case of an emergency, please contact the following numbers: [place] Crisis and Access Line: Number: Crisis Text Line: (Text START) Number: [phone] Suicide Prevention Line: Number: Emergency Number: 911 SUBSTANCE ABUSE PROGRAMS: Sober Living [place]: Location: [place], [place] [employer] Address: [address] [place] [address] [facility]: Address: [address] [place] [address] [facility] Adult Rehabilitation: Address: [address] [place] [address] [facility]: Address: [address] [place] [address] [facility] Address: [address] [place] [address]. [place] Crisis Line: Suicide Prevention Line: Crisis Text Line: Text START to 875656 Emergency: 911 Outpatient COMMUNITY Behavioral Health Resources: JORGE: Jorge [facility] [address] [place], [place] [address] [facility] [address] [place] [address] Thursday thru Thursday - 8am - 5pm Call to schedule an assessment for mental health and substance abuse programs Referrals: PRIMARY CAREMD [Primary Care Provider] - 3-5 Days Time of Disposition: 20:25
[2021-09-20 17:40] LABS: Basophils # (Auto) 0.1 K/mm3 (0.0-0.1); Basophils % (Auto) 0.5 % (0.0-1.8); Eosinophils # (Auto) 0.1 K/mm3 (0.0-0.4); Eosinophils % (Auto) 1.3 % (0.0-4.3); Hematocrit 46.7 % (35.5-45.6); Hemoglobin 15.3 gm/dl (11.8-15.2); Lymphocytes # (Auto) 1.6 K/mm3 (1.2-5.4); Lymphocytes % (Auto) 15.7 % (13.4-35.0); Mean Corpuscular HGB Conc 33 % (32-34); Mean Corpuscular Volume 95 fl (84-94); Monocytes # (Auto) 1.1 K/mm3 (0.0-0.8); Monocytes % (Auto) 11.2 % (0.0-7.3); Platelet Count 196 K/mm3 (140-440); Red Blood Count 4.92 M/mm3 (3.65-5.03); Red Cell Distribution Width 14.9 % (13.2-15.2)
[2021-09-20 18:14] LABS: BUN/Creatinine Ratio 11; Blood Urea Nitrogen 12 mg/dL (9-20); Calcium 9.2 mg/dL (8.4-10.2); Hemolysis Index 42
[2021-09-20 20:12] LABS: Bilirubin,Urine NEG (Negative); Blood,Urine SM (Negative); Color,Urine Yellow (Yellow); Mucus,Urine FEW /HPF; Protein,Urine >500 mg/dL (Negative)
[2021-09-20 20:20] LABS: Amphetamine Screen,Urine Negative; Benzodiazepines Screen,Urine Negative; Methadone Screen,Urine Negative; Opiate Screen,Urine Negative
[2021-09-20 20:32] LABS: Cannabinoid Screen,Urine Positive; Cocaine Screen,Urine Positive
[2021-09-20 20:46] VITALS: BP 154/101
--- NOTE | 2021-09-22 11:41 | Electrocardiograph Report ---
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
== END 2021-09-20 20:46 ==
LOC: ED 13:18
DX: Z04.6 Encounter for general psychiatric examination, requested by authority (principal); F14.10 Cocaine abuse, uncomplicated; F10.10 Alcohol abuse, uncomplicated; I10 Essential (primary) hypertension; E11.9 Type 2 diabetes mellitus without complications; F17.200 Nicotine dependence, unspecified, uncomplicated; Z72.89 Other problems related to lifestyle; Z79.899 Other long term (current) drug therapy; Y90.9 Presence of alcohol in blood, level not specified
CPT/HCPCS: 36415; 80048; 80307; 80320; 81001; 85025; 93005; 99283; G0480

== ENCOUNTER 2021-11-22 09:26 | Emergency (ER) | payer OTHER ==
[2021-11-22] MEDS ORDERED: ONDANSETRON 4 MG ODT TAB PO ONE (09:32)
[2021-11-22] MEDS ORDERED: KETOROLAC 30 MG/1 ML INJ IM ONE (09:32)
--- NOTE | 2021-11-22 09:36 | Emergency Department Report ---
ED Abdominal Pain HPI - General Chief Complaint: Abdominal Pain Stated Complaint: ABD PAIN Time Seen by Provider: 11/22/21 09:32 Source: patient Mode of arrival: Ambulatory Limitations: No Limitations - History of Present Illness Initial Comments: Patient presents with abdominal pain since New Year's. The pain is progressively worsened. This is an epigastric pain that does not radiate or migrate. It is worse when he eats. He has had no vomiting. There is no diarrhea. No fevers or chills. Has had no sick contacts. There is no lower abdominal pain associated with this. He has not had any hematemesis or coffee- ground emesis. There is no melenic stool. Has never had symptoms like this before. He has never had surgery on his abdomen. The pain is worsened progressively so he came here. - Related Data Previous Rx's Medication Instructions Recorded Last Taken Type Amiodarone [Cordarone 200 MG TAB] 200 mg PO QDAY 30 Days #30 tablet 09/19/21 Unknown Rx Apixaban [Eliquis] 5 mg PO Q12HR 30 Days #60 tablet 09/19/21 Unknown Rx Aspirin [Aspirin BABY CHEW TAB] 81 mg PO QDAY 30 Days #30 tab.chew 09/19/21 Unknown Rx AtorvaSTATin [Lipitor] 40 mg PO QHS 30 Days #30 tablet 09/19/21 Unknown Rx Losartan [Cozaar] 50 mg PO QDAY 30 Days #30 tablet 09/19/21 Unknown Rx dilTIAZem CD [Cardizem CD] 240 mg PO QDAY 30 Days #30 capsule 09/19/21 Unknown Rx Hyoscyamine Subl [Levsin Sl 0.125 0.125 mg SL Q6HR PRN #30 tab 11/22/21 Unknown Rx TAB] Metoclopramide [Reglan] 10 mg PO ACHS PRN #60 tablet 11/22/21 Unknown Rx Allergies Allergy/AdvReac Type Severity Reaction Status Date / Time No Known Allergies Allergy Unverified 09/12/19 16:33 ED Review of Systems ROS: Stated complaint: ABD PAIN Other details as noted in HPI Comment: All other systems reviewed and negative Constitutional: denies: fever Eyes: denies: vision change ENT: denies: throat pain Respiratory: denies: cough Cardiovascular: denies: chest pain Endocrine: denies: unexplained weight loss Gastrointestinal: as per HPI Genitourinary: denies: dysuria Musculoskeletal: denies: back pain Skin: denies: rash Neurological: denies: headache Hematological/Lymphatic: denies: easy bruising ED Past Medical Hx - Past Medical History Hx Hypertension: Yes Hx Congestive Heart Failure: No Hx Diabetes: Yes Hx Asthma: No - Family History Family history: hypertension - Social History Smoking Status: Current Every Day Smoker (1 pack/day) Substance Use Type: Alcohol (Daily. Last use today), Cocaine (Last used today) - Medications Home Medications: Home Medications Medication Instructions Recorded Confirmed Last Taken Type Amiodarone [Cordarone 200 MG TAB] 200 mg PO QDAY 30 Days #30 tablet 09/19/21 Unknown Rx Apixaban [Eliquis] 5 mg PO Q12HR 30 Days #60 tablet 09/19/21 Unknown Rx Aspirin [Aspirin BABY CHEW TAB] 81 mg PO QDAY 30 Days #30 tab.chew 09/19/21 Unknown Rx AtorvaSTATin [Lipitor] 40 mg PO QHS 30 Days #30 tablet 09/19/21 Unknown Rx Losartan [Cozaar] 50 mg PO QDAY 30 Days #30 tablet 09/19/21 Unknown Rx dilTIAZem CD [Cardizem CD] 240 mg PO QDAY 30 Days #30 capsule 09/19/21 Unknown Rx Hyoscyamine Subl [Levsin Sl 0.125 0.125 mg SL Q6HR PRN #30 tab 11/22/21 Unknown Rx TAB] Metoclopramide [Reglan] 10 mg PO ACHS PRN #60 tablet 11/22/21 Unknown Rx ED Physical Exam - General Limitations: No Limitations, Other (Pulse ox noted and normal) General appearance: alert, in no apparent distress - Head Head exam: Present: atraumatic, normocephalic - Eye Eye exam: Present: normal appearance, EOMI. Absent: scleral icterus - ENT ENT exam: Present: normal orophraynx, normal external ear exam - Neck Neck exam: Present: normal inspection. Absent: meningismus - Respiratory Respiratory exam: Present: normal lung sounds bilaterally. Absent: respiratory distress - Cardiovascular Cardiovascular Exam: Present: regular rate, normal rhythm - GI/Abdominal GI/Abdominal exam: Present: soft, tenderness (Epigastric). Absent: guarding, rebound, pulsatile mass - Extremities Exam Extremities exam: Present: normal capillary refill - Back Exam Back exam: Present: full ROM - Neurological Exam Neurological exam: Present: alert, oriented X3, normal gait. Absent: motor sensory deficit - Psychiatric Psychiatric exam: Present: normal affect, normal mood - Skin Skin exam: Present: warm, dry ED Course Vital Signs 11/22/21 11/22/21 09:33 11:58 Temperature 97.6 F Pulse Rate 87 Respiratory 20 16 Rate Blood Pressure 144/91 O2 Sat by Pulse 98 Oximetry - Reevaluation(s) Reevaluation #1: 11/22/21 09:35 Labs and medications were ordered. Old records reviewed. Reevaluation #2: 11/22/21 10:47 Labs are noted. Ultrasound ordered. Reevaluation #3: 11/22/21 12:07 Ultrasound was noted. Patient was discharged. ED Medical Decision Making - Lab Data Result diagrams: 11/22/21 10:02 11/22/21 10:02 - Radiology Data Radiology results: report reviewed - Medical Decision Making Patient present with postprandial epigastric pain. He has evidence of acute pancreatitis. There is no clinical evidence of cholecystitis or cholelithiasis. He did not have any rebound or guarding. There is no evidence of transaminitis. He does not have any evidence of bilirubin elevation suggestive of biliary obstruction. Ultrasound was noted and there did appear to be sludge in the gallbladder, but again there is no evidence of cholecystitis. Patient was treated symptomatically. He was referred for outpatient evaluation and follow-up. He does not have intractable pain or vomiting that would require admission. Critical Care Time: No Critical care attestation.: If time is entered above; I have spent that time in minutes in the direct care of this critically ill patient, excluding procedure time. ED Disposition Clinical Impression: Acute epigastric pain Acute pancreatitis Qualifiers: Pancreatitis type: unspecified pancreatitis type Acute pancreatitis complication: no infection or necrosis Qualified Code(s): K85.90 - Acute pancreatitis without necrosis or infection, unspecified Disposition: 01 HOME / SELF CARE / HOMELESS Is pt being admited?: No Condition: Stable Instructions: Abdominal Pain, Adult Additional Instructions: Have a clear liquid diet until your pain resolves. Then continue clear liquids for 48 hours. After 48 hours, go to a full liquid diet. After 48 hours of a full liquid diet, go to a bland diet. After 48 hours of a bland diet, go to a full diet. If your pain returns at any point, return to a clear liquid diet. Follow-up with the family doctor for repeat evaluation. Prescriptions: Hyoscyamine Subl [Levsin Sl 0.125 TAB] 0.125 mg SL Q6HR PRN #30 tab PRN Reason: Pain, Moderate (4-6) Metoclopramide [Reglan] 10 mg PO ACHS PRN #60 tablet PRN Reason: Nausea Referrals: PRIMARY CARE, [Primary Care Provider] - 3-5 Days OREN HARRELL MD [Staff Physician] - 3-5 Days
[2021-11-22 10:36] LABS: Hematocrit 50.6 % (35.5-45.6); Hemoglobin 16.1 gm/dl (11.8-15.2); Mean Corpuscular HGB Conc 32 % (32-34); Mean Corpuscular Volume 90 fl (84-94); Platelet Count 247 K/mm3 (140-440); Red Blood Count 5.65 M/mm3 (3.65-5.03)
[2021-11-22 10:43] LABS: Alanine Aminotransferase 16 units/L (7-56); Albumin 3.9 g/dL (3.9-5); BUN/Creatinine Ratio 18; Blood Urea Nitrogen 18 mg/dL (9-20); Calcium 9.5 mg/dL (8.4-10.2); Hemolysis Index 19
--- NOTE | 2021-11-22 11:51 | Ultrasound Report ---
LIMITED RUQ ABDOMINAL ULTRASOUND INDICATION: upper abd pain, eval gallbladder. COMPARISON: No relevant prior imaging study available. FINDINGS: Pancreas: Visualized portions show no significant abnormality. Abdominal Aorta: No significant abnormality. IVC: No significant abnormality. Liver: The liver measures 17.6 cm in length. The liver is mildly enlarged. No obvious parenchymal di sease or focal mass. Normal hepatopedal blood flow in the main portal vein. Gallbladder: There is a mild degree of sludge in the gallbladder. No shadowing gallstones or wall thi ckening. Bile ducts: The common bile duct is mildly dilated. Common bile duct measures 8.5 mm. Right kidney: No significant abnormality visualized. Free fluid: None. Additional Findings: None. IMPRESSION: Sludge in the gallbladder. No obvious gallstones. The common bile duct is mildly dilated at 8.5 mm. C holedocholithiasis cannot be entirely excluded. Please correlate with the patient and consider MRCP. Mild hepatomegaly.. Signer Name: Vik Up Jr, MD Signed: 11/22/2021 11:46 AM Workstation Name: [id number]
[2021-11-22 12:20] VITALS: BP 134/78
== END 2021-11-22 12:22 | disposition home or self-care (01) ==
LOC: ED 09:26
DX: R10.13 Epigastric pain (principal); K85.90 Acute pancreatitis without necrosis or infection, unspecified; I10 Essential (primary) hypertension; F17.200 Nicotine dependence, unspecified, uncomplicated; E11.8 Type 2 diabetes mellitus with unspecified complications
CPT/HCPCS: 36415; 76705; 80053; 83690; 85027; 96372; 99284; J1885; J3490; Q0162

== ENCOUNTER 2021-12-27 16:42 | Emergency (ER) | payer OTHER ==
[2021-12-27 20:54] VITALS: BP 148/88
[2021-12-27] MEDS ORDERED: KETOROLAC 30 MG/1 ML INJ IM ONE (21:10)
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
[2021-12-27] MEDS ORDERED: NalbUPHINE 10 MG/1 ML INJ IM ONE (22:13)
== END 2021-12-27 23:06 | disposition home or self-care (01) ==
LOC: ED 16:42
DX: S09.90XA Unspecified injury of head, initial encounter (principal); I10 Essential (primary) hypertension; E11.9 Type 2 diabetes mellitus without complications; F17.200 Nicotine dependence, unspecified, uncomplicated; Z72.89 Other problems related to lifestyle; Z79.82 Long term (current) use of aspirin; Z79.01 Long term (current) use of anticoagulants; Z79.899 Other long term (current) drug therapy; V87.7XXA Person injured in collision between other specified motor vehicles (traffic), initial encounter; Y93.89 Activity, other specified; Y92.488 Other paved roadways as the place of occurrence of the external cause; Y99.8 Other external cause status
CPT/HCPCS: 70450; 96372; 99284; J1885; J2300